=== PATIENT | female | born 1955 | race Caucasian/White ===

== ENCOUNTER → 2018-12-12 | Outpatient (CLI) | payer SELFPAY ==
--- NOTE | 2018-12-12 17:44 | RADRPT ---
PROCEDURE: XR Right hip and pelvis. CLINICAL INDICATION: Right hip pain and pelvic pain. TECHNIQUE: 3 views. Frontal pelvis. Frontal and lateral right hip. COMPARISON: None. FINDINGS: There are severe degenerative changes of both hips with joint space narrowing, osteophytes, subchondr al cysts, subchondral sclerosis, marked deformity, and protrusio acetabulum. Right is slightly worse than left. The soft tissues are normal. There is diffuse osteopenia. There is no radiopaque foreign body. IMPRESSION: 1. Severe degenerative changes of both hips with right slightly worse than left. 2. Diffuse osteopenia. 3. Otherwise unremarkable study. RPTAT: QQ .Tim Leon MD, MD Date Time Electronically viewed and signed by .Tim Leon MD, MD on 12/12/2018 17:44 .R/
== END | disposition home or self-care (01) ==
LOC: HKI 15:07
PROVIDERS: ATTEND Orthopaedic Surgery Adult Reconstructive Orthopaedic Surgery
DX: M25.551 Pain in right hip (principal); R10.2 Pelvic and perineal pain
CPT/HCPCS: 73502

== ENCOUNTER 2018-12-19 05:49 | Inpatient (IN) | payer OTHER ==
[2018-12-19] VITALS (23 sets, daily range): BP systolic 90–142; BP diastolic 45–75; PULSE 63–118; RESP 17–23; Ht 170.2 cm; Wt 73.5 kg
[~2018-12-19] VITALS: Ht 170.2 cm; Wt 73.5 kg
[~2018-12-19 05:49] MED LIST: TRANEXAMIC ACID 1GM/100ML(PMX) 100 ML PRE-OP IVPB ONE
[2018-12-19] MEDS ORDERED: TRANEXAMIC ACID 1GM/100ML(PMX) 100 ML PRE-OP IVPB ONE (06:00)
[2018-12-19] MEDS ORDERED: LACTATED RINGER'S 1,000 ML IV* SCH (06:00)
[2018-12-19] MEDS ORDERED: CELECOXIB 200 MG CAP PO ONE (06:00)
[2018-12-19] MEDS ORDERED: ACETAMINOPHEN 1000MG/100ML IV 100 ML IVPB ONE (06:00)
[2018-12-19] MEDS ORDERED: CEFAZOLIN 2 GM/50 ML (PMX) 50 ML IVPB ONE (06:00)
[2018-12-19] MEDS ORDERED: DEXAMETHASONE 4 MG/ML 1 ML INJ IV ONE (06:00)
[2018-12-19] MEDS ORDERED: ONDANSETRON 4 MG INJ IV ONE (06:00)
[2018-12-19] MEDS ORDERED: LANSOPRAZOLE 30 MG CAP PO ONE (06:00)
[2018-12-19] MEDS ORDERED: VANCOMYCIN 1 GM (PMX) 250 ML IVPB ONE (06:30)
[2018-12-19] MEDS ORDERED: ROCURONIUM 50 MG INJ ONE (07:00)
[2018-12-19] MEDS ORDERED: BACITRACIN 50000 UNITS INJ ONE ×2 (07:11)
[2018-12-19] MEDS ORDERED: POLYMYXIN B 500000 UNIT INJ ONE (07:13)
--- NOTE | 2018-12-19 07:21 | PREAC ---
Date/Time of Note Date/Time of Note DATE: 12/19/18 TIME: 07:20 Anesthesia Eval and Record Evaluation Time Pre-Procedure Interview DATE: 12/19/18 TIME: 07:20 Age 63 Sex female NPO: 8 hrs Preoperative diagnosis right primary RA Planned procedure right hip total replacement Past Medical History Past Medical History: None Surgery & Anesthesia Issues No known issue Meds Anticoagulation: No Beta Radha within 24 hr: No Reason Beta Radha not given: Pt. not on B-Radha No Active Prescriptions or Reported Meds Current Medications Lactated Ringer's 1,000 ml @ 125 mls/hr Q8H IV* Last administered on 12/19/18at 06:54; Admin Dose 125 MLS/HR; Start 12/19/18 at 06:00; Stop 12/19/18 at 13:59 Tranexamic Acid 100 ml @ 200 mls/hr AT CLOSING ONCE IVPB ; Start 12/19/18 at 12:00; Stop 12/19/18 at 12:29 Ropivacaine/ Clonidine/ Epinephrine/ Ketorolac Tromethamine/ Sodium Chloride INTRA-OP INJ ; Start 12/19/18 at 07:30; Stop 12/19/18 at 12:00 Vancomycin HCl 250 ml @ 125 mls/hr ONCE ONCE IVPB Last administered on 12/19/18at 06:44; Admin Dose 125 MLS/HR; Start 12/19/18 at 06:30; Stop 12/19/18 at 08:29 Meds reviewed: Yes Allergies Coded Allergies: No Known Allergy (Unverified , 12/19/18) Allergies Reviewed: Yes Labs/Studies Labs Reviewed: Reviewed by anesthesiologist Result Diagram: 12/19/1829 12/19/18 0629 Laboratory Tests 12/19/18 06:29 Blood Bank Test 12/19/18 06:22 Blood Product Summary Counts test: N/A Studies: ECG (sr), CXR (nl) Pre-procedure Exam Last vitals Vital Signs Date Temp Pulse Resp B/P (MAP) Pulse Ox O2 O2 Flow FiO2 Time Delivery Rate 12/19/18 97.5 75 18 142/75 96 Room Air 07:00 (97) Airway: Adequate mouth opening Mallampati: Mallampati I Teeth: Abnormal (partial denture) Lung: Normal Heart: Normal ASA Physical Status ASA physical status: 1 Emergency: None Planned Anesthetic General/MAC: ETT, LMA Neuraxial: Spinal Nerve block: Femoral (right) Planned Pain Management Sub-arachniod narcotics, Single shot nerve block, Parenteral pain med Pre-operative Attestations Prior to commencing anesthesia and surgery, the patient was re-evaluated, there was verification of: *The patient's identity *The results of appropriate recent lab work and preoperative vital signs *The above evaluation not changing prior to induction *Anesthetic plan, risk benefits, alternative and complications discussed with patient/family; questions answered; patient/family understands, accepts and wishes to proceed. KEILA LEMONS MD Dec 19, 2018 07:21
[2018-12-19] MEDS ORDERED: CEFAZOLIN 1 GM INJ ONE (07:27)
[2018-12-19] MEDS ORDERED: PROPOFOL 20 ML ONE (07:27)
--- NOTE | 2018-12-19 07:27 | HPN ---
Date/Time of Note Date/Time of Note DATE: 12/19/18 TIME: 07:27 Interval H&P Admission Note Pt. seen H&P reviewed: No system changes Patient denies fever, chills, shortness of breath, chest pain, nausea/vomiting, constipation, diarrhea, numbness, and tingling. MUSCULOSKELETAL: Right extremity Skin intact Sensation intact to light touch in a sural, saphenous, deep peroneal, superficial peroneal, medial and lateral plantar nerve distribution. Motor is intact, patient able to dorsiflex and plantarflex ankle and extend and flex great toe. Dorsalis Pedis pulse +2, Brisk capillary refill. Compartments are soft. Calves non-tender to palpation bilaterally. GABRIEL ESPINAL MD Dec 19, 2018 07:27
[2018-12-19] MEDS ORDERED: FENTAnyl 50 MCG/ML VIAL ONE (07:28)
[2018-12-19] MEDS ORDERED: METOCLOPRAMIDE 10 MG INJ ONE (07:28)
[2018-12-19] MEDS ORDERED: MIDAZOLAM 1 MG/ML 2 ML INJ ONE (07:28)
[2018-12-19] MEDS ORDERED: morphine SULFATE/PF (10 MG/10 ML) INJ ONE (07:28)
[2018-12-19] MEDS ORDERED: TRANEXAMIC ACID 1GM/100ML(PMX) 200 ML ONE (07:34)
[2018-12-19] MEDS ORDERED: DIPHENHYDRAMINE 50 MG INJ IV PRN ×2 (08:30→12:00)
[2018-12-19] MEDS ORDERED: FENTAnyl 50 MCG/ML VIAL IV PRN ×3 (08:30)
[2018-12-19] MEDS ORDERED: HYDROmorphONE 1 MG/5 ML IV SYRINGE IV PRN ×3 (08:30)
[2018-12-19] MEDS ORDERED: MEPERIDINE 25 MG INJ IV PRN (08:30)
[2018-12-19] MEDS ORDERED: ONDANSETRON 4 MG INJ IV PRN (08:30)
[2018-12-19] MEDS ORDERED: ROPIVACAINE 0.5 % 30 ML VIAL ONE (09:50)
[2018-12-19] MEDS ORDERED: EPHEDrine 50 MG INJ ONE (10:24)
[2018-12-19] MEDS ORDERED: ALBUMIN HUMAN 5% 250 ML ONE (10:24)
[2018-12-19] MEDS ORDERED: ONDANSETRON 4 MG INJ ONE (10:46)
--- NOTE | 2018-12-19 11:46 | OPR ---
Date/Time of Note Date/Time of Note DATE: 12/19/18 TIME: 11:45 Operative Report Procedure Date: Dec 19, 2018 Preoperative Diagnosis Protrusio right hip with secondary osteoarthritis Postoperative Diagnosis As above Operation/Procedure Performed Right total hip arthroplasty Intraoperative x-ray Bone grafting Surgeon see signature line Practicing Md Anesthesiologist Uvaldo Ruff Anesthesia Type: general, spinal Estimated Blood Loss: 150 - 200 ml's Transfusion none Specimen Femoral head Grafts/Implants Implant: DePuy: Gription-pinnacle acetabulum size 52 mm Polyethylene Size 36 mm neutral Femoral stem: [place] press-fit size 6, high offset Femoral head: 36 +1.5 mm ceramic. 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 POSTOP DIAGNOSIS: Same. SURGICAL PROCEDURE: Right total hip arthroplasty (CPT code 73686). With modifier 22 secondary to complicated an abnormal anatomy from her hip protrusio and bone loss which resulted in increase preoperative planning, requiring special equipment and increased time and effort by at least 50% Bone grafting Intraoperative x-ray INDICATIONS: The patient is a 63 year-old woman with an orthopaedic history significant for progressively worsening right hip pain. The patient failed conservative management and wished to pursue surgical options. On physical exam, they walk with a moderate antalgic gait. No previous open surgical scars. Very limited range of motion but no contractures. Neurovascularly intact. Radiographs reveal advanced protrusio with secondary. INFORMED CONSENT: The operative procedure was explained using diagrams and/or three-dimensional models. The rehabilitation, the potential risks, benefits and alternatives were discussed at length. Specific risks discussed included but were not limited to excessive blood loss and the need for transfusion and therefore the risk of transmissible disease or transfusion reaction, deep infection and the potential need for repetitive debridements, implant removal, long-term antibiotic therapy, possibly requiring deep venous access, leg-length discrepancy, dislocation, possibly recurrent, with the need for closed versus open reduction, bracing, femoral or acetabular fracture and the need for further surgery for fixation, neurovascular injury with temporary or permanent numbness, tingling, weakness or paralysis, deep venous thrombosis, pulmonary embolism and , persistent pain, weakness, or limp, late aseptic loosening and the need for revision, polyethylene wear-induced osteolysis and related problems, and finally, a wide variety of unanticipated medical problems. The opportunity to ask questions and address any concerns was provided. The patient wished to proceed. FINDINGS: Significant hip protrusio. The medial wall was intact but expanded medially. The bone was soft but of good quality superiorly. There was significant missing posterior wall. After the total hip arthroplasty was implanted and reduced it was noted that under at the new leg length the sciatic nerve was significantly close to the operative field although not under undue tension. SURGERY IN DETAIL: The patient was taken into the Operating Room and placed supine on the operating table. Preoperatively, they were administered Ancef and vancomycin secondary to MRSA status unknown. They were administered general and spinal anesthesia by the Anesthesia Department. Dexamethasone 10mg IV was administered. The patient was placed on an [facility] Lateral Positioner in a left lateral decubitus po sition with the right hip superior. An axillary roll was placed, all pressure points were confirmed padded. The right hip region was prepped and draped in sterile fashion. A surgical pause was performed, correctly identifying the patient's name, the correct medical record number, the correct diagnosis, correct surgical procedure, and the correct extremity. 1g of tranexamic acid was dosed at the time of incision A posterolateral skin incision, approximately 15-20 cm in length was made, centered over the greater trochanter, skin and subcutaneous tissue sharply dissected. Deep fascial layer was identified and incised in line with the skin incision. Gluteus medius was retracted anteriorly. Piriformis tendon was identified, tagged with a stitch, and incised close to its insertion. The interval between the gluteus minimus and hip capsule was developed superiorly, and a superior retractor was placed. Short external rotators were subperiosteally incised from the posterior proximal femur to the level of the lesser trochanter and an inferior retractor was placed. A posterior capsulotomy was performed. Two tag stitches were placed in the capsule. The hip was dislocated. A femoral neck osteotomy was performed at the preoperatively templated level. A radial incision was made in the inferior capsule to the level of transverse acetabular ligament, which was identified, and an inferior retractor was placed inferior to the transverse acetabular ligament or inferior to the cotyloid notch. An anterior retractor was placed at the rim of the acetabulum. The acetabular labrum was then s The acetabulum was then sequentially reamed, beginning at 45 mm, up to a size 51 outer diameter reamer with care not to ream medially. At a size 51 outer diameter reamer there is good rim fit. A size 52 mm Gription-Chandler cup was inserted. A 2 dome screws was placed with excellent purchase, and a neutral 36 mm polyethylene trial was inserted and attention was placed to preparing the femur. Soft tissues were removed from the junction of the greater trochanter and the femoral neck osteotomy. A box osteotome was used lateralize the starting point. A starting awl was utilized, followed by a lateralizing reamer, followed by axial reamers for the [place] system up to a size 6. The femoral canal was then broached up to a size 6. A neutral femoral head was inserted and the hip was reduced. Range of motion and stability were quite good, including forward flexion to greater than 90 degrees, internal rotation greater than 80 degrees at 90 degrees flexion, internal rotation greater than 80 degrees with the hip adducted and at 45 degrees of flexion. External Rotation was also tested, and was stable but there was significant impingement at full extension and 30 degrees external rotation. Therefore the trial was changed to a high offset neck which resolved the impingement external rotation and extension. Ranawat sign was 55 degrees. Intraoperative x-ray revealed the hip to have satisfactory position of all components. The hip was dislocated in controlled manner using a bone hook and the trial components removed. Local anesthetic was injected periarticular. A formal 36 mm neutral polyethylene was inserted into the cup, confirmed seated and locked. On the femoral side, a [place] size 6 high offset stem was inserted. A 36 +1.5 mm head was inserted onto the taper. The hip was reduced. One final time range of motion, stability, and soft tissue tension were satisfactory. The wound was thoroughly irrigated. 1g of tranexamic acid was dosed. The previously tagged a rthrotomy, as well as the piriformis tendon was reattached to the gluteus medius at the level the greater trochanter. The deep fascial layer was closed with 1 Vicryl in a [id number], interrupted fashion, deep subcutaneous tissues irrigated and closed with 0 Vicryl interrupted fashion, subcutaneous tissues irrigated, closed with 2-0 Vicryl in an inverted, interrupted fashion. The skin was closed with lizzy. A sterile dressing was applied, abduction pillow was placed between the legs, and the patient was transferred to a supine position. Postoperative clinical leg lengths, rotation of limb were neutral and symmetric. All Counts were correct x2 DISPOSITION: Patient transferred to PACU in stable condition. The patient will be weight bearing as tolerated on the operative extremity. PT will begin POD#0 if available. Posterior hip precautions for 3 months with an abduction pillow. Postoperative AP pelvis will be ordered in PACU. Bilateral knee high SCDs will be worn while admitted. ASA 81mg BID will be given for DVT prophylaxis for 6 weeks. Pain will be controlled with medication. The patient will follow up in clinic in approximately 2 weeks. Implant: DePuy: Gription-pinnacle acetabulum size 52 mm Polyethylene Size 36 mm neutral Femoral stem: [place] press-fit size 6, high offset Femoral head: 36 +1.5 mm ceramic. Bone graft: 2 cc montage approximately 5-10 cc of autologous bone graft from the femoral head GABRIEL ESPINAL MD Dec 19, 2018 11:46
[2018-12-19] MEDS ORDERED: SUCCINYLCHOLINE CHLORIDE 100 MG/5 ML SYG IV ONE (11:47)
[2018-12-19] MEDS ORDERED: NALOXONE (0.4 MG/ML) INJ IV PRN (12:00)
[2018-12-19] MEDS ORDERED: BETHANECHOL 25 MG TAB PO PRN (12:00)
[2018-12-19] MEDS ORDERED: TRANEXAMIC ACID 1GM/100ML(PMX) 100 ML AT CLOSING IVPB ONE (12:00)
[2018-12-19] MEDS ORDERED: HYDROmorphONE 1 MG/ML SYG IV PRN (12:00)
[2018-12-19] MEDS ORDERED: MAGNESIUM HYDROXIDE 30ML CUP PO PRN (12:00)
[2018-12-19] MEDS ORDERED: NA PHOSPHATE/BIPHOS 133 ML ENEMA PR PRN (12:00)
[2018-12-19] MEDS ORDERED: oxyCODONE 5 MG TAB PO PRN (12:00)
[2018-12-19] MEDS ORDERED: NACL 0.9% 3 ML SYG IV SCH (12:00)
[2018-12-19] MEDS ORDERED: DOCUSATE SODIUM 100 MG CAP PO ONE ×2 (12:00→12:48)
[2018-12-19] MEDS ORDERED: BISACODYL 10 MG SUPP PR PRN (12:00)
[2018-12-19] MEDS ORDERED: SENNA/DOCUSATE NA (8.6MG/50MG) TAB PO PRN (12:00)
[2018-12-19] MEDS: CEFAZOLIN 2 GM/50 ML (PMX) 50 ML IVPB SCH ×2 (12:31→20:11)
[2018-12-19] MEDS: LACTATED RINGER'S 1,000 ML IV SCH ×2 (13:40→20:14)
[2018-12-19] MEDS: ACETAMINOPHEN 500 MG TAB PO SCH ×2 (14:52→21:57)
--- NOTE | 2018-12-19 16:57 | CONS ---
Assessment/Plan Assessment/Plan Assessment/Plan (Daily) 1. Right hip arthritis status post right total hip arthroplasty postop day #0 Pain control PT DVT prophylaxis per Ortho Consultation Date/Type/Reason Admit Date/Time Dec 19, 2018 at 05:49 Date/Time of Note DATE: 12/19/18 TIME: 16:56 Hx of Present Illness Patient is a 63-year-old female with no significant history except for right hip arthritis, patient is status post right total hip arthroplasty postop day 0. Patient has no significant complaints at this time. Constitutional: no complaints, improved Eyes: no complaints ENT: no complaints Respiratory: no complaints Cardiovascular: no complaints Gastrointestinal: no complaints Genitourinary: no complaints Musculoskeletal: no complaints Skin: no complaints Neurologic: no complaints Endocrine: no complaints Lymphatic: no complaints Psychological: no complaints, nl mood/affect Immunologic: no complaints Past Medical History Medical History: no pertinent history Home Meds No Active Prescriptions or Reported Meds Medications Current Medications Lactated Ringer's 1,000 ml @ 80 mls/hr [id number] IV ; Start 12/19/18 at 13:30 Oxycodone HCl (Roxicodone) 15 mg Q4H PRN PO .PAIN; Start 12/19/18 at 12:00 Oxycodone HCl (Roxicodone) 10 mg Q4H PRN PO .PAIN; Start 12/19/18 at 12:00 Oxycodone HCl (Roxicodone) 5 mg Q4H PRN PO .PAIN; Start 12/19/18 at 12:00 Hydromorphone HCl (Dilaudid) 1 mg Q3H PRN IV .BREAKTHROUGH PAIN; Start 12/19/18 at 12:00 Acetaminophen (Tylenol Tab) 1,000 mg Q8 PO Last administered on 12/19/18at 14:52; Admin Dose 1,000 MG; Start 12/19/18 at 14:00 Ondansetron HCl (Zofran Inj) 4 mg Q4H PRN IV NAUSEA/VOMITING; Start 12/20/18 at 12:00 Cefazolin Sodium/ Dextrose 50 ml @ 100 mls/hr Q8H IVPB Last administered on 12/19/18at 12:31; Admin Dose 100 MLS/HR; Start 12/19/18 at 12:00; Stop 12/20/18 at 04:29 Vancomycin HCl 250 ml @ 125 mls/hr Q12H IVPB ; Start 12/19/18 at 18:00; Stop 12/20/18 at 07:59 Gabapentin (Neurontin) 300 mg QHS PO ; Start 12/19/18 at 21:00 Dexamethasone (Decadron) 10 mg ONCE ONCE IV ; Start 12/20/18 at 07:00; Stop 12/20/18 at 07:01 Pantoprazole (Protonix Tab) 40 mg DAILY@06 PO ; Start 12/20/18 at 06:00 Docusate Sodium (Colace) 200 mg BID PO ; Start 12/20/18 at 09:00; Stop 12/22/18 at 21:01 Simethicone (Mylicon) 80 mg TID PRN PO .GAS; Start 12/19/18 at 12:00 Senna/Docusate Sodium (Senokot-S) 2 tab BID PRN PO .CONSTIPATION; Start 12/19/18 at 12:00 Magnesium Hydroxide (Milk Of Mag) 30 ml HS PRN PO .CONSTIPATION; Start 12/19/18 at 12:00 Bisacodyl (Dulcolax Supp) 10 mg DAILY PRN [place] .CONSTIPATION; Start 12/19/18 at 12:00 Sodium Biphosphate/ Sodium Phosphate (Fleet Enema) 133 ml DAILY PRN [place] .CONSTIPATION; Start 12/19/18 at 12:00 Diphenhydramine HCl (Benadryl) 25 mg Q4H PRN IV .ITCHING; Start 12/19/18 at 12:00 Naloxone HCl (Narcan) 0.2 mg Q2M PRN IV .RESP RATE; Start 12/19/18 at 12:00 IV Flush (NS 3 ml) 3 ml per protocol IV ; Start 12/19/18 at 12:00 Bethanechol Chloride (Urecholine) 25 mg URINARY CATH D/C PRN PO UNABLE TO VOID; Start 12/19/18 at 12:00 Aspirin (Halfprin) 81 mg BID PO ; Start 12/20/18 at 09:00 Allergies: Coded Allergies: No Known Allergy (Unverified , 12/19/18) Family History Significant Family History: no pertinent family hx Social History Alcohol Use: rarely Smoking Status: Never smoker Drug Use: none Exam/Review of Systems Exam Vitals Vital Signs Date Temp Pulse Resp B/P (MAP) Pulse Ox O2 O2 Flow FiO2 Time Delivery Rate 12/19/18 98.1 94 91/52 (65) 98 Room Air 15:45 Nasal Cannula 12/19/18 2.0 13:45 12/19/18 18 12:37 Constitutional: alert, oriented Respiratory: clear to auscultation Cardiovascular: regular rate and rhythm Gastrointestinal: soft; No distended Musculoskeletal: nl extremities to inspection Results Result Diagram: 12/19/18 0629 12/19/18 0629 Results 24hrs Laboratory Tests Test 12/19/18 06:29 White Blood Count 7.2 Red Blood Count 4.31 Hemoglobin 12.6 Hematocrit 38.5 Mean Corpuscular Volume 89.3 Mean Corpuscular Hemoglobin 29.2 Mean Corpuscular Hemoglobin Concent 32.7 Red Cell Distribution Width 13.7 Platelet Count 302 Mean Platelet Volume 8.4 Immature Granulocytes % 0.100 Neutrophils % 45.4 Lymphocytes % 43.1 Monocytes % 8.5 Eosinophils % 2.2 Basophils % 0.7 Nucleated Red Blood Cells % 0.0 Immature Granulocytes # 0.010 Neutrophils # 3.2 Lymphocytes # 3.1 H Monocytes # 0.6 Eosinophils # 0.2 Basophils # 0.1 Nucleated Red Blood Cells # 0.0 Prothrombin Time 12.0 Prothrombin Time Ratio 0.9 INR International Normalized Ratio 0.88 Activated Partial Thromboplast Time 31.2 Sodium Level 142 Potassium Level 4.4 Chloride Level 101 Carbon Dioxide Level 30 Anion Gap 11 Blood Urea Nitrogen 21 H Creatinine 0.62 Est Glomerular Filtrat Rate mL/min > 60 Glucose Level 82 Calcium Level 10.1 Medications Medication Current Medications Lactated Ringer's 1,000 ml @ 80 mls/hr [id number] IV ; Start 12/19/18 at 13:30 Oxycodone HCl (Roxicodone) 15 mg Q4H PRN PO .PAIN; Start 12/19/18 at 12:00 Oxycodone HCl (Roxicodone) 10 mg Q4H PRN PO .PAIN; Start 12/19/18 at 12:00 Oxycodone HCl (Roxicodone) 5 mg Q4H PRN PO .PAIN; Start 12/19/18 at 12:00 Hydromorphone HCl (Dilaudid) 1 mg Q3H PRN IV .BREAKTHROUGH PAIN; Start 12/19/18 at 12:00 Acetaminophen (Tylenol Tab) 1,000 mg Q8 PO Last administered on 12/19/18at 14:52; Admin Dose 1,000 MG; Start 12/19/18 at 14:00 Ondansetron HCl (Zofran Inj) 4 mg Q4H PRN IV NAUSEA/VOMITING; Start 12/20/18 at 12:00 Cefazolin Sodium/ Dextrose 50 ml @ 100 mls/hr Q8H IVPB Last administered on 12/19/18at 12:31; Admin Dose 100 MLS/HR; Start 12/19/18 at 12:00; Stop 12/20/18 at 04:29 Vancomycin HCl 250 ml @ 125 mls/hr Q12H IVPB ; Start 12/19/18 at 18:00; Stop 12/20/18 at 07:59 Gabapentin (Neurontin) 300 mg QHS PO ; Start 12/19/18 at 21:00 Dexamethasone (Decadron) 10 mg ONCE ONCE IV ; Start 12/20/18 at 07:00; Stop 12/20/18 at 07:01 Pantoprazole (Protonix Tab) 40 mg DAILY@06 PO ; Start 12/20/18 at 06:00 Docusate Sodium (Colace) 200 mg BID PO ; Start 12/20/18 at 09:00; Stop 12/22/18 at 21:01 Simethicone (Mylicon) 80 mg TID PRN PO .GAS; Start 12/19/18 at 12:00 Senna/Docusate Sodium (Senokot-S) 2 tab BID PRN PO .CONSTIPATION; Start 12/19/18 at 12:00 Magnesium Hydroxide (Milk Of Mag) 30 ml HS PRN PO .CONSTIPATION; Start 12/19/18 at 12:00 Bisacodyl (Dulcolax Supp) 10 mg DAILY PRN [place] .CONSTIPATION; Start 12/19/18 at 12:00 Sodium Biphosphate/ Sodium Phosphate (Fleet Enema) 133 ml DAILY PRN [place] .CONSTIPATION; Start 12/19/18 at 12:00 Diphenhydramine HCl (Benadryl) 25 mg Q4H PRN IV .ITCHING; Start 12/19/18 at 12:00 Naloxone HCl (Narcan) 0.2 mg Q2M PRN IV .RESP RATE; Start 12/19/18 at 12:00 IV Flush (NS 3 ml) 3 ml per protocol IV ; Start 12/19/18 at 12:00 Bethanechol Chloride (Urecholine) 25 mg URINARY CATH D/C PRN PO UNABLE TO VOID; Start 12/19/18 at 12:00 Aspirin (Halfprin) 81 mg BID PO ; Start 12/20/18 at 09:00 NITZA LEVI Dec 19, 2018 16:57
[2018-12-19] MEDS: VANCOMYCIN 1 GM (PMX) 250 ML IVPB SCH (17:43)
--- NOTE | 2018-12-19 17:58 | RADRPT ---
Vent Rate: 72 bpm RR Interval: 0 msec KS Interval: 130 msec QRS Duration: 88 msec QT Interval: 398 msec QTC Interval: 435 msec P-R-T [place]: 56 - 57 - 68 degrees Normal sinus rhythm Normal ECG Electronically Signed By: Darian Goldsmith
[2018-12-19] MEDS: GABAPENTIN 300 MG CAP PO SCH (20:11)
[2018-12-20] VITALS (23 sets, daily range): BP systolic 73–104; BP diastolic 36–54; PULSE 81–106; RESP 14–19
[2018-12-20] MEDS: LACTATED RINGER'S 1,000 ML IV SCH ×2 (03:43→22:22)
[2018-12-20] MEDS: CEFAZOLIN 2 GM/50 ML (PMX) 50 ML IVPB SCH (03:43)
[2018-12-20] MEDS: oxyCODONE 5 MG TAB PO PRN ×4 (03:52→20:42)
[2018-12-20] MEDS: VANCOMYCIN 1 GM (PMX) 250 ML IVPB SCH (05:07)
[2018-12-20] MEDS: PANTOPRAZOLE (EC) 40 MG TAB PO SCH (05:09)
[2018-12-20] MEDS: ACETAMINOPHEN 500 MG TAB PO SCH ×3 (05:09→22:25)
[2018-12-20] MEDS ORDERED: DEXAMETHASONE 10 MG/ML 1 ML INJ IV ONE (07:00)
--- NOTE | 2018-12-20 08:00 | PN ---
Date/Time of Note Date/Time of Note DATE: 12/20/18 TIME: 07:56 Assessment/Plan Lines/Catheters IV Catheter Type (from Nrsg): Saline Lock Ramirez in Place (from Nrsg): Yes Assessment/Plan Chief Complaint/Hosp Course POD#1 s/p primary right LINA. There has been a significant drop in hemoglobin since surgery. This is acute anemia secondary to surgical blood loss. There was not significant amount of intraoperative bleeding. The acute drop in hemoglobin is concerning, however her vitals have remained stable since PACU. At this time we will going to closely monitor the patient take vitals every 2 hours and get a repeat H&H at noon. Patient has 2 units of PRBCs on hold from surgery. -Post op H&H will continue to be monitored closely. -PT/OT. Posterior Hip Precautions -Joints pain control protocol -DVT prophylaxis: SCD's, ASA 81 mg twice daily -Weight bearing status: as tolerated -Post-op XR ordered -Abx: 24h vanc/ancef -Diet: ADAT -Ramirez: Continue Ramirez for continued strict I and O's secondary to acute anemia and need for further monitoring -Discharge planning consult Planned Discharge Date: To be determined Discharge to home with home health versus SNF Subjective 24 Hr Interval Summary Patient doing well No acute events overnight Pain is well controlled Exam/Review of Systems Vital Signs Vitals Vital Signs Date Temp Pulse Resp B/P (MAP) Pulse Ox O2 O2 Flow FiO2 Time Delivery Rate 12/20/18 98.6 90 19 92/53 (66) 98 Room Air 04:37 Nasal Cannula 12/19/18 2.0 20:10 Intake and Output 12/19/18 12/19/18 12/20/18 1515:00 23:00 07:00 IntakeIntake Total 2950 ml 770 ml 845 ml OutputOutput Total 2250 ml BalanceBalance 700 ml 770 ml 845 ml Exam Free Text/Dictation Right lower extremity: Dressing: clean, dry, and intact, no erythema. Thigh is swollen Sensation intact to light touch in a sural, saphenous, deep peroneal, superficial peroneal, medial and lateral plantar nerve distribution. Motor is intact, patient able to dorsiflex and plantarflex ankle and extend and flex great toe. Dorsalis Pedis pulse +2, Brisk capillary refill. Compartments are soft. Calves non-tender to palpation bilaterally. Results Result Diagram: 12/20/18 0625 12/20/18 0434 GABRIEL ESPINAL MD Dec 20, 2018 08:00
[2018-12-20] MEDS: ASPIRIN (EC) 81 MG TAB PO SCH ×2 (08:32→21:00)
[2018-12-20] MEDS: DOCUSATE SODIUM 100 MG CAP PO SCH ×2 (08:32→20:42)
--- NOTE | 2018-12-20 09:12 | PAC ---
Date/Time of Note Date/Time of Note DATE: 12/20/18 TIME: 09:12 Post-Anesthesia Notes Post-Anesthesia Note Last documented vital signs Vital Signs Date Temp Pulse Resp B/P (MAP) Pulse Ox O2 O2 Flow FiO2 Time Delivery Rate 12/20/18 98.2 89 18 91/52 (65) 97 08:00 12/20/18 Room Air 04:37 Nasal Cannula 12/19/18 2.0 20:10 Activity: WNL Respiratory function: WNL Cardiovascular function: WNL Mental status: Baseline Pain reasonably controlled: Yes Hydration appropriate: Yes Nausea/Vomiting absent: No KEILA LEMONS MD Dec 20, 2018 09:12
--- NOTE | 2018-12-20 09:12 | OPPN ---
Date/Time of Note Date/Time of Note DATE: 12/20/18 TIME: 09:12 Anesthesia Follow up Anesthesia Follow up Last documented vital signs Vital Signs Date Temp Pulse Resp B/P (MAP) Pulse Ox O2 O2 Flow FiO2 Time Delivery Rate 12/20/18 98.2 89 18 91/52 (65) 97 08:00 12/20/18 Room Air 04:37 Nasal Cannula 12/19/18 2.0 20:10 Respiratory function: WNL Cardiovascular function: WNL Comments A 63 yeasr female s/p right hip replacement under [place] spinal duramorph for posst op pain POD#1 is doing fine . pain is controlled, no itching, headache, N/V, neural deficit. KEILA LEMONS MD Dec 20, 2018 09:12
[2018-12-20] MEDS ORDERED: CARISOPRODOL 350 MG TAB PO ONE (11:30)
[2018-12-20] MEDS ORDERED: ONDANSETRON 4 MG INJ IV PRN (12:00)
--- NOTE | 2018-12-20 15:20 | PN ---
Date/Time of Note Date/Time of Note DATE: 12/20/18 TIME: 15:18 Assessment/Plan VTE Prophylaxis Risk score (from Ns)>0 risk: 10 SCD applied (from Ns): Yes Pharmacological prophylaxis: other Lines/Catheters IV Catheter Type (from Nrsg): Saline Lock Assessment/Plan Hospital Course 1. Right hip arthritis status post right total hip arthroplasty postop day #1 Pain control PT Aspirin for DVT prophylaxis 2. Anemia secondary to acute blood loss Transfuse 2 units of packed red blood cells 3. Muscular neck pain Soma x1 Prophylaxis: Aspirin Result Diagram: 12/20/18 1235 12/20/18 0434 Results 24hrs Laboratory Tests Test 12/20/18 04:34 12/20/18 06:25 12/20/18 12:35 White Blood Count 6.0 5.9 Red Blood Count 2.16 #L 2.12 L Hemoglobin 6.5 #*L 6.3 *L 6.7 *L Hematocrit 19.6 #L 19.4 L 20.7 L Mean Corpuscular Volume 90.7 91.5 Mean Corpuscular Hemoglobin 30.1 29.7 Mean Corpuscular Hemoglobin Concent 33.2 32.5 Red Cell Distribution Width 14.1 14.1 Platelet Count 170 # 179 Mean Platelet Volume 8.9 8.9 Immature Granulocytes % 0.200 0.300 Neutrophils % 68.3 Segmented Neutrophils % (Manual) 53 Band Neutrophils % (Manual) 17 H Lymphocytes % 24.1 Lymphocytes % (Manual) 28 Monocytes % 6.9 Monocytes % (Manual) 2 Eosinophils % 0.2 Basophils % 0.2 Nucleated Red Blood Cells % 0.0 0.0 Immature Granulocytes # 0.010 0.020 Neutrophils # 4.1 Neutrophils # (Manual) 3.2 Band Neutrophils # 1.0 H Lymphocytes (Manual) 1.6 Lymphocytes # 1.4 Monocytes # 0.4 Monocytes # (Manual) 0.1 L Eosinophils # 0.0 Basophils # 0.0 Nucleated Red Blood Cells # 0.0 Platelet Estimate NORMAL Anisocytosis 1+ Microcytosis 1+ Prothrombin Time 14.4 Prothrombin Time Ratio 1.1 INR International Normalized Ratio 1.11 Sodium Level 138 Potassium Level 4.1 Chloride Level 106 Carbon Dioxide Level 27 Anion Gap 5 Blood Urea Nitrogen 21 H Creatinine 0.75 Est Glomerular Filtrat Rate mL/min > 60 Glucose Level 110 Calcium Level 8.4 Subjective 24 Hr Interval Summary Musculoskeletal: neck pain Exam/Review of Systems Exam Vitals Vital Signs Date Temp Pulse Resp B/P (MAP) Pulse Ox O2 O2 Flow FiO2 Time Delivery Rate 12/20/18 98.3 88 17 95 14:15 12/20/18 Room Air 12:00 12/19/18 2.0 20:10 Intake and Output 12/19/18 12/19/18 12/20/18 1515:00 23:00 07:00 IntakeIntake Total 2950 ml 770 ml 845 ml OutputOutput Total 2250 ml BalanceBalance 700 ml 770 ml 845 ml Constitutional: alert, oriented Respiratory: clear to auscultation Cardiovascular: regular rate and rhythm Gastrointestinal: soft; No distended Musculoskeletal: nl extremities to inspection Results Results 24hrs Laboratory Tests Test 12/20/18 04:34 12/20/18 06:25 12/20/18 12:35 White Blood Count 6.0 5.9 Red Blood Count 2.16 #L 2.12 L Hemoglobin 6.5 #*L 6.3 *L 6.7 *L Hematocrit 19.6 #L 19.4 L 20.7 L Mean Corpuscular Volume 90.7 91.5 Mean Corpuscular Hemoglobin 30.1 29.7 Mean Corpuscular Hemoglobin Concent 33.2 32.5 Red Cell Distribution Width 14.1 14.1 Platelet Count 170 # 179 Mean Platelet Volume 8.9 8.9 Immature Granulocytes % 0.200 0.300 Neutrophils % 68.3 Segmented Neutrophils % (Manual) 53 Band Neutrophils % (Manual) 17 H Lymphocytes % 24.1 Lymphocytes % (Manual) 28 Monocytes % 6.9 Monocytes % (Manual) 2 Eosinophils % 0.2 Basophils % 0.2 Nucleated Red Blood Cells % 0.0 0.0 Immature Granulocytes # 0.010 0.020 Neutrophils # 4.1 Neutrophils # (Manual) 3.2 Band Neutrophils # 1.0 H Lymphocytes (Manual) 1.6 Lymphocytes # 1.4 Monocytes # 0.4 Monocytes # (Manual) 0.1 L Eosinophils # 0.0 Basophils # 0.0 Nucleated Red Blood Cells # 0.0 Platelet Estimate NORMAL Anisocytosis 1+ Microcytosis 1+ Prothrombin Time 14.4 Prothrombin Time Ratio 1.1 INR International Normalized Ratio 1.11 Sodium Level 138 Potassium Level 4.1 Chloride Level 106 Carbon Dioxide Level 27 Anion Gap 5 Blood Urea Nitrogen 21 H Creatinine 0.75 Est Glomerular Filtrat Rate mL/min > 60 Glucose Level 110 Calcium Level 8.4 Medications Medication Current Medications Lactated Ringer's 1,000 ml @ 80 mls/hr [id number] IV Last administered on 12/20/18at 03:43; Admin Dose 80 MLS/HR; Start 12/19/18 at 13:30 Oxycodone HCl (Roxicodone) 15 mg Q4H PRN PO .PAIN; Start 12/19/18 at 12:00 Oxycodone HCl (Roxicodone) 10 mg Q4H PRN PO .PAIN; Start 12/19/18 at 12:00 Oxycodone HCl (Roxicodone) 5 mg Q4H PRN PO .PAIN Last administered on 12/20/18at 10:50; Admin Dose 5 MG; Start 12/19/18 at 12:00 Hydromorphone HCl (Dilaudid) 1 mg Q3H PRN IV .BREAKTHROUGH PAIN; Start 12/19/18 at 12:00 Acetaminophen (Tylenol Tab) 1,000 mg Q8 PO Last administered on 12/20/18at 14:33; Admin Dose 1,000 MG; Start 12/19/18 at 14:00 Ondansetron HCl (Zofran Inj) 4 mg Q4H PRN IV NAUSEA/VOMITING; Start 12/20/18 at 12:00 Gabapentin (Neurontin) 300 mg QHS PO Last administered on 12/19/18at 20:11; Admin Dose 300 MG; Start 12/19/18 at 21:00 Pantoprazole (Protonix Tab) 40 mg DAILY@06 PO Last administered on 12/20/18at 05:09; Admin Dose 40 MG; Start 12/20/18 at 06:00 Docusate Sodium (Colace) 200 mg BID PO Last administered on 12/20/18at 08:32; Admin Dose 200 MG; Start 12/20/18 at 09:00; Stop 12/22/18 at 21:01 Simethicone (Mylicon) 80 mg TID PRN PO .GAS; Start 12/19/18 at 12:00 Senna/Docusate Sodium (Senokot-S) 2 tab BID PRN PO .CONSTIPATION; Start 12/19/18 at 12:00 Magnesium Hydroxide (Milk Of Mag) 30 ml HS PRN PO .CONSTIPATION; Start 12/19/18 at 12:00 Bisacodyl (Dulcolax Supp) 10 mg DAILY PRN [place] .CONSTIPATION; Start 12/19/18 at 12:00 Sodium Biphosphate/ Sodium Phosphate (Fleet Enema) 133 ml DAILY PRN [place] .CONSTIPATION; Start 12/19/18 at 12:00 Diphenhydramine HCl (Benadryl) 25 mg Q4H PRN IV .ITCHING; Start 12/19/18 at 12:00 Naloxone HCl (Narcan) 0.2 mg Q2M PRN IV .RESP RATE; Start 12/19/18 at 12:00 IV Flush (NS 3 ml) 3 ml per protocol IV ; Start 12/19/18 at 12:00 Bethanechol Chloride (Urecholine) 25 mg URINARY CATH D/C PRN PO UNABLE TO VOID; Start 12/19/18 at 12:00 Aspirin (Halfprin) 81 mg BID PO Last administered on 12/20/18at 08:32; Admin Dose 81 MG; Start 12/20/18 at 09:00 NITZA LEVI Dec 20, 2018 15:20
[2018-12-20] MEDS: GABAPENTIN 300 MG CAP PO SCH (20:43)
[2018-12-21] VITALS (10 sets, daily range): BP systolic 88–119; BP diastolic 46–64; PULSE 76–98; RESP 17–18
[2018-12-21] MEDS: oxyCODONE 5 MG TAB PO PRN ×2 (02:13→21:14)
[2018-12-21] MEDS: ACETAMINOPHEN 500 MG TAB PO SCH ×3 (06:07→21:11)
[2018-12-21] MEDS: PANTOPRAZOLE (EC) 40 MG TAB PO SCH (06:07)
[2018-12-21] MEDS: DOCUSATE SODIUM 100 MG CAP PO SCH ×2 (08:24→21:11)
[2018-12-21] MEDS: LACTATED RINGER'S 1,000 ML IV SCH (15:30)
--- NOTE | 2018-12-21 15:56 | PN ---
Date/Time of Note Date/Time of Note DATE: 12/21/18 TIME: 15:54 Assessment/Plan VTE Prophylaxis Risk score (from Ns)>0 risk: 5 SCD applied (from [facility] [place]): Yes Pharmacological prophylaxis: NA/contraindicated Pharm contraindication: bleeding Lines/Catheters IV Catheter Type (from [facility]): Peripheral IV Assessment/Plan Hospital Course 1. Right hip arthritis status post right total hip arthroplasty postop day #2 Pain control PT Aspirin for DVT prophylaxis being held secondary to anemia 2. Anemia secondary to acute blood loss Transfuse 2 units of packed red blood cells Monitor 3. Muscular neck pain-resolved Status post Soma x1 4. Constipation Colace and senna Prophylaxis: SCDs, aspirin being held secondary to anemia Result Diagram: 12/21/18 0439 12/21/18 0439 Results 24hrs Laboratory Tests Test 12/20/18 20:13 12/21/18 04:39 Hemoglobin 6.2 *L 5.9 *L Hematocrit 19.3 L 17.9 L White Blood Count 6.3 Red Blood Count 1.93 L Mean Corpuscular Volume 92.7 Mean Corpuscular Hemoglobin 30.6 Mean Corpuscular Hemoglobin Concent 33.0 Red Cell Distribution Width 14.4 Platelet Count 161 Mean Platelet Volume 9.2 Immature Granulocytes % 0.500 H Neutrophils % 63.6 Lymphocytes % 28.0 Monocytes % 7.2 Eosinophils % 0.5 Basophils % 0.2 Nucleated Red Blood Cells % 0.0 Immature Granulocytes # 0.030 Neutrophils # 4.0 Lymphocytes # 1.8 Monocytes # 0.5 Eosinophils # 0.0 Basophils # 0.0 Nucleated Red Blood Cells # 0.0 Prothrombin Time 13.5 Prothrombin Time Ratio 1.1 INR International Normalized Ratio 1.02 Sodium Level 140 Potassium Level 3.9 Chloride Level 106 Carbon Dioxide Level 29 Anion Gap 5 Blood Urea Nitrogen 17 Creatinine 0.67 Est Glomerular Filtrat Rate mL/min > 60 Glucose Level 103 Calcium Level 8.2 L Subjective 24 Hr Interval Summary Gastrointestinal: constipation Exam/Review of Systems Exam Vitals Vital Signs Date Temp Pulse Resp B/P (MAP) Pulse Ox O2 O2 Flow FiO2 Time Delivery Rate 12/21/18 98.0 98 18 106/53 90 Room Air 14:19 (70) 12/19/18 2.0 20:10 Intake and Output 12/20/18 12/20/18 12/21/18 1414:59 22:59 06:59 IntakeIntake Total 1325 ml 1280 ml 1100 ml OutputOutput Total 1600 ml 2600 ml BalanceBalance -275 ml 1280 ml -1500 ml Constitutional: alert, oriented Respiratory: clear to auscultation Cardiovascular: regular rate and rhythm Gastrointestinal: soft; No distended Musculoskeletal: nl extremities to inspection Results Results 24hrs Laboratory Tests Test 12/20/18 20:13 12/21/18 04:39 Hemoglobin 6.2 *L 5.9 *L Hematocrit 19.3 L 17.9 L White Blood Count 6.3 Red Blood Count 1.93 L Mean Corpuscular Volume 92.7 Mean Corpuscular Hemoglobin 30.6 Mean Corpuscular Hemoglobin Concent 33.0 Red Cell Distribution Width 14.4 Platelet Count 161 Mean Platelet Volume 9.2 Immature Granulocytes % 0.500 H Neutrophils % 63.6 Lymphocytes % 28.0 Monocytes % 7.2 Eosinophils % 0.5 Basophils % 0.2 Nucleated Red Blood Cells % 0.0 Immature Granulocytes # 0.030 Neutrophils # 4.0 Lymphocytes # 1.8 Monocytes # 0.5 Eosinophils # 0.0 Basophils # 0.0 Nucleated Red Blood Cells # 0.0 Prothrombin Time 13.5 Prothrombin Time Ratio 1.1 INR International Normalized Ratio 1.02 Sodium Level 140 Potassium Level 3.9 Chloride Level 106 Carbon Dioxide Level 29 Anion Gap 5 Blood Urea Nitrogen 17 Creatinine 0.67 Est Glomerular Filtrat Rate mL/min > 60 Glucose Level 103 Calcium Level 8.2 L Medications Medication Current Medications Lactated Ringer's 1,000 ml @ 80 mls/hr [id number] IV Last administered on 12/20/18at 22:22; Admin Dose 80 MLS/HR; Start 12/19/18 at 13:30 Oxycodone HCl (Roxicodone) 15 mg Q4H PRN PO .PAIN; Start 12/19/18 at 12:00 Oxycodone HCl (Roxicodone) 10 mg Q4H PRN PO .PAIN Last administered on 12/21/18at 02:13; Admin Dose 10 MG; Start 12/19/18 at 12:00 Oxycodone HCl (Roxicodone) 5 mg Q4H PRN PO .PAIN Last administered on 12/20/18at 10:50; Admin Dose 5 MG; Start 12/19/18 at 12:00 Hydromorphone HCl (Dilaudid) 1 mg Q3H PRN IV .BREAKTHROUGH PAIN; Start 12/19/18 at 12:00 Acetaminophen (Tylenol Tab) 1,000 mg Q8 PO Last administered on 12/21/18at 13:24; Admin Dose 1,000 MG; Start 12/19/18 at 14:00 Ondansetron HCl (Zofran Inj) 4 mg Q4H PRN IV NAUSEA/VOMITING; Start 12/20/18 at 12:00 Gabapentin (Neurontin) 300 mg QHS PO Last administered on 12/20/18at 20:43; Admin Dose 300 MG; Start 12/19/18 at 21:00 Pantoprazole (Protonix Tab) 40 mg DAILY@06 PO Last administered on 12/21/18at 06:07; Admin Dose 40 MG; Start 12/20/18 at 06:00 Docusate Sodium (Colace) 200 mg BID PO Last administered on 12/21/18at 08:24; Admin Dose 200 MG; Start 12/20/18 at 09:00; Stop 12/22/18 at 21:01 Simethicone (Mylicon) 80 mg TID PRN PO .GAS; Start 12/19/18 at 12:00 Senna/Docusate Sodium (Senokot-S) 2 tab BID PRN PO .CONSTIPATION; Start 12/19/18 at 12:00 Magnesium Hydroxide (Milk Of Mag) 30 ml HS PRN PO .CONSTIPATION; Start 12/19/18 at 12:00 Bisacodyl (Dulcolax Supp) 10 mg DAILY PRN [place] .CONSTIPATION; Start 12/19/18 at 12:00 Sodium Biphosphate/ Sodium Phosphate (Fleet Enema) 133 ml DAILY PRN [place] .CONSTIPATION; Start 12/19/18 at 12:00 Diphenhydramine HCl (Benadryl) 25 mg Q4H PRN IV .ITCHING; Start 12/19/18 at 12:00 Naloxone HCl (Narcan) 0.2 mg Q2M PRN IV .RESP RATE; Start 12/19/18 at 12:00 IV Flush (NS 3 ml) 3 ml per protocol IV ; Start 12/19/18 at 12:00 Bethanechol Chloride (Urecholine) 25 mg URINARY CATH D/C PRN PO UNABLE TO VOID; Start 12/19/18 at 12:00 Aspirin (Halfprin) 81 mg BID PO Last administered on 12/20/18at 08:32; Admin Dose 81 MG; Start 12/20/18 at 09:00; Status Hold NITZA LEVI Dec 21, 2018 15:56
[2018-12-21] MEDS ORDERED: SENNA TAB PO SCH (16:00)
[2018-12-21] MEDS: GABAPENTIN 300 MG CAP PO SCH (21:11)
[2018-12-22 01:12] VITALS: BP 109/62; PULSE 96; RESP 18
[2018-12-22] MEDS: LACTATED RINGER'S 1,000 ML IV SCH (04:00)
[2018-12-22] MEDS: oxyCODONE 5 MG TAB PO PRN ×2 (05:10→12:33)
[2018-12-22] MEDS: PANTOPRAZOLE (EC) 40 MG TAB PO SCH (05:10)
[2018-12-22] MEDS: ACETAMINOPHEN 500 MG TAB PO SCH ×3 (05:10→20:57)
[2018-12-22 08:08] VITALS: BP 111/52; PULSE 84; RESP 18
[2018-12-22] MEDS: DOCUSATE SODIUM 100 MG CAP PO SCH ×2 (09:04→20:56)
[2018-12-22 16:25] VITALS: BP 117/65; PULSE 90; RESP 18
[2018-12-22 19:53] VITALS: BP 115/60; PULSE 90; RESP 18
[2018-12-22] MEDS: GABAPENTIN 300 MG CAP PO SCH (20:56)
[2018-12-23] MEDS: oxyCODONE 5 MG TAB PO PRN ×2 (04:24→16:39)
[2018-12-23] MEDS: ACETAMINOPHEN 500 MG TAB PO SCH ×2 (05:17→14:25)
[2018-12-23] MEDS: PANTOPRAZOLE (EC) 40 MG TAB PO SCH (05:26)
[2018-12-23 07:44] VITALS: BP 128/67; PULSE 89; RESP 14
--- NOTE | 2018-12-23 11:38 | PN ---
Date/Time of Note Date/Time of Note DATE: 12/23/18 TIME: 11:37 Assessment/Plan VTE Prophylaxis Risk score (from Ns)>0 risk: 2 SCD applied (from Nsg): Yes Pharmacological prophylaxis: other Lines/Catheters IV Catheter Type (from Nrsg): Saline Lock Urinary Cath still in place: No Assessment/Plan Hospital Course 1. Right hip arthritis status post right total hip arthroplasty postop day #3 Pain control PT Aspirin for DVT prophylaxis being held secondary to anemia 2. Anemia secondary to acute blood loss-stable Transfused 2 units of packed red blood cells Monitor 3. Muscular neck pain-resolved Status post Soma x1 4. Constipation-resolved Status post Colace and senna Prophylaxis: SCDs, aspirin being held secondary to anemia DC planning: Likely DC per Ortho today Result Diagram: 12/23/1842112/23/18421 Results 24hrs Laboratory Tests Test 12/23/18 04:22 White Blood Count 5.2 # Red Blood Count 3.14 L Hemoglobin 9.3 L Hematocrit 28.0 L Mean Corpuscular Volume 89.2 Mean Corpuscular Hemoglobin 29.6 Mean Corpuscular Hemoglobin Concent 33.2 Red Cell Distribution Width 13.9 Platelet Count 268 # Mean Platelet Volume 8.7 Immature Granulocytes % 0.400 Neutrophils % 58.9 Lymphocytes % 29.2 Monocytes % 8.4 Eosinophils % 2.7 Basophils % 0.4 Nucleated Red Blood Cells % 0.0 Immature Granulocytes # 0.020 Neutrophils # 3.1 Lymphocytes # 1.5 Monocytes # 0.4 Eosinophils # 0.1 Basophils # 0.0 Nucleated Red Blood Cells # 0.0 Prothrombin Time 12.3 Prothrombin Time Ratio 1.0 INR International Normalized Ratio 0.90 Sodium Level 140 Potassium Level 4.2 Chloride Level 103 Carbon Dioxide Level 31 Anion Gap 6 Blood Urea Nitrogen 12 Creatinine 0.60 Est Glomerular Filtrat Rate mL/min > 60 Glucose Level 100 Calcium Level 8.9 Subjective 24 Hr Interval Summary Constitutional: no complaints Exam/Review of Systems Exam Vitals Vital Signs Date Temp Pulse Resp B/P (MAP) Pulse Ox O2 O2 Flow FiO2 Time Delivery Rate 12/23/18 99.4 89 14 128/67 100 Room Air 07:44 (87) 12/19/18 2.0 20:10 Intake and Output 12/22/18 12/22/18 12/23/18 1515:00 23:00 07:00 IntakeIntake Total 520 ml 440 ml 200 ml OutputOutput Total 250 ml 200 ml BalanceBalance 520 ml 190 ml 0 ml Constitutional: alert, oriented Respiratory: clear to auscultation Cardiovascular: regular rate and rhythm Gastrointestinal: soft; No distended Musculoskeletal: nl extremities to inspection Results Results 24hrs Laboratory Tests Test 12/23/18 04:22 White Blood Count 5.2 # Red Blood Count 3.14 L Hemoglobin 9.3 L Hematocrit 28.0 L Mean Corpuscular Volume 89.2 Mean Corpuscular Hemoglobin 29.6 Mean Corpuscular Hemoglobin Concent 33.2 Red Cell Distribution Width 13.9 Platelet Count 268 # Mean Platelet Volume 8.7 Immature Granulocytes % 0.400 Neutrophils % 58.9 Lymphocytes % 29.2 Monocytes % 8.4 Eosinophils % 2.7 Basophils % 0.4 Nucleated Red Blood Cells % 0.0 Immature Granulocytes # 0.020 Neutrophils # 3.1 Lymphocytes # 1.5 Monocytes # 0.4 Eosinophils # 0.1 Basophils # 0.0 Nucleated Red Blood Cells # 0.0 Prothrombin Time 12.3 Prothrombin Time Ratio 1.0 INR International Normalized Ratio 0.90 Sodium Level 140 Potassium Level 4.2 Chloride Level 103 Carbon Dioxide Level 31 Anion Gap 6 Blood Urea Nitrogen 12 Creatinine 0.60 Est Glomerular Filtrat Rate mL/min > 60 Glucose Level 100 Calcium Level 8.9 Medications Medication Current Medications Oxycodone HCl (Roxicodone) 15 mg Q4H PRN PO .PAIN Last administered on 12/23/18 10:51; Admin Dose 15 MG; Start 12/19/18 at 12:00 Oxycodone HCl (Roxicodone) 10 mg Q4H PRN PO .PAIN Last administered on 12/23/18at 04:24; Admin Dose 10 MG; Start 12/19/18 at 12:00 Oxycodone HCl (Roxicodone) 5 mg Q4H PRN PO .PAIN Last administered on 12/20/18 10:50; Admin Dose 5 MG; Start 12/19/18 at 12:00 Hydromorphone HCl (Dilaudid) 1 mg Q3H PRN IV .BREAKTHROUGH PAIN; Start 12/19/18 at 12:00 Acetaminophen (Tylenol Tab) 1,000 mg Q8 PO Last administered on 12/22/18at 20:57; Admin Dose 1,000 MG; Start 12/19/18 at 14:00 Ondansetron HCl (Zofran Inj) 4 mg Q4H PRN IV NAUSEA/VOMITING; Start 12/20/18 at 12:00 Gabapentin (Neurontin) 300 mg QHS PO Last administered on 12/22/18at 20:56; Admin Dose 300 MG; Start 12/19/18 at 21:00 Pantoprazole (Protonix Tab) 40 mg DAILY@06 PO Last administered on 12/22/18at 05:10; Admin Dose 40 MG; Start 12/20/18 at 06:00 Simethicone (Mylicon) 80 mg TID PRN PO .GAS; Start 12/19/18 at 12:00 Senna/Docusate Sodium (Senokot-S) 2 tab BID PRN PO .CONSTIPATION; Start 12/19/18 at 12:00 Magnesium Hydroxide (Milk Of Mag) 30 ml HS PRN PO .CONSTIPATION Last administered on 12/22/18at 05:12; Admin Dose 30 ML; Start 12/19/18 at 12:00 Bisacodyl (Dulcolax Supp) 10 mg DAILY PRN [place] .CONSTIPATION; Start 12/19/18 at 12:00 Sodium Biphosphate/ Sodium Phosphate (Fleet Enema) 133 ml DAILY PRN [place] .CONSTIPATION; Start 12/19/18 at 12:00 Diphenhydramine HCl (Benadryl) 25 mg Q4H PRN IV .ITCHING; Start 12/19/18 at 12:00 Naloxone HCl (Narcan) 0.2 mg Q2M PRN IV .RESP RATE; Start 12/19/18 at 12:00 IV Flush (NS 3 ml) 3 ml per protocol IV ; Start 12/19/18 at 12:00 Bethanechol Chloride (Urecholine) 25 mg URINARY CATH D/C PRN PO UNABLE TO VOID; Start 12/19/18 at 12:00 Aspirin (Halfprin) 81 mg BID PO Last administered on 12/20/18at 08:32; Admin Dose 81 MG; Start 12/20/18 at 09:00; Status Hold NITZA LEVI Dec 23, 2018 11:38
--- NOTE | 2018-12-23 13:42 | PN ---
Date/Time of Note Date/Time of Note DATE: 12/23/18 TIME: 13:38 Assessment/Plan Lines/Catheters IV Catheter Type (from Nrsg): Saline Lock Ramirez in Place (from Nrsg): No Assessment/Plan Chief Complaint/Hosp Course POD#4 s/p primary right LINA. After 2 units PRBCs her hemoglobin has remained stable. She is doing well physical therapy. She is ready to go home today with home health. -Post op H&H stable -PT/OT. Posterior Hip Precautions -Joints pain control protocol -DVT prophylaxis: SCD's, ASA 81 mg twice daily -Weight bearing status: as tolerated -Post-op XR ordered -Diet: ADAT Subjective 24 Hr Interval Summary Patient doing well No acute events overnight Pain is well controlled Exam/Review of Systems Vital Signs Vitals Vital Signs Date Temp Pulse Resp B/P (MAP) Pulse Ox O2 O2 Flow FiO2 Time Delivery Rate 12/23/18 99.4 89 14 128/67 100 Room Air 07:44 (87) 12/19/18 2.0 20:10 Intake and Output 12/22/18 12/22/18 12/23/18 1515:00 23:00 07:00 IntakeIntake Total 520 ml 440 ml 200 ml OutputOutput Total 250 ml 200 ml BalanceBalance 520 ml 190 ml 0 ml Exam Free Text/Dictation Right lower extremity: Incision: Clean, dry, and intact, no erythema Sensation intact to light touch in a sural, saphenous, deep peroneal, superficial peroneal, medial and lateral plantar nerve distribution. Motor is intact, patient able to dorsiflex and plantarflex ankle and extend and flex great toe. Dorsalis Pedis pulse +2, Brisk capillary refill. Compartments are soft. Calves non-tender to palpation bilaterally. Results Result Diagram: 12/23/18 0422 12/23/18 0422 GABRIEL ESPINAL MD Dec 23, 2018 13:42
--- NOTE | 2018-12-23 13:44 | DS ---
Date/Time of Note Date/Time of Note DATE: 12/23/18 TIME: 13:43 Discharge Summary Admission/Discharge Info Admit Date/Time Dec 19, 2018 at 05:49 Discharge Date/Time Hospital Course POD#4 s/p primary right LINA. Postoperative course was complicated by significan t acute drop in hemoglobin. This was monitored very carefully and it was deemed necessary to give a blood transfusion. After 2 units PRBCs her hemoglobin has remained stable. She is doing well physical therapy. Pain is well controlled. She is tolerating diet. She is ready to go home today with home health. -Post op H&H stable -PT/OT. Posterior Hip Precautions -Joints pain control protocol -DVT prophylaxis: SCD's, ASA 81 mg twice daily -Weight bearing status: as tolerated Follow-up in clinic at scheduled appointment approximately 2 weeks from surgery Home Meds No Active Prescriptions or Reported Meds Primary Care Provider Not On Staff Doctor Pending Labs Laboratory Tests Test 12/23/18 04:22 White Blood Count 5.2 10^3/ul (4.8-10.8) Red Blood Count 3.14 10^6/ul (4.20-5.40) Hemoglobin 9.3 g/dl (12.0-16.0) Hematocrit 28.0 % (37.0-47.0) Mean Corpuscular Volume 89.2 fl (82.0-101.0) Mean Corpuscular Hemoglobin 29.6 pg (29.0-33.0) Mean Corpuscular Hemoglobin Concent 33.2 g/dl (32.0-37.0) Red Cell Distribution Width 13.9 % (11.5-14.5) Platelet Count 268 10^3/UL (140-415) Mean Platelet Volume 8.7 fl (7.4-10.4) Immature Granulocytes % 0.400 % (0.001-0.429) Neutrophils % 58.9 % (39.0-77.0) Lymphocytes % 29.2 % (15.0-51.0) Monocytes % 8.4 % (0.0-11.0) Eosinophils % 2.7 % (0.0-7.0) Basophils % 0.4 % (0.0-2.0) Nucleated Red Blood Cells % 0.0 /100WBC (0.0-0.0) Immature Granulocytes # 0.020 10^3/ul (0.0-0.031) Neutrophils # 3.1 10^3/ul (1.6-7.5) Lymphocytes # 1.5 10^3/ul (0.8-2.9) Monocytes # 0.4 10^3/ul (0.3-0.9) Eosinophils # 0.1 10^3/ul (0.0-0.5) Basophils # 0.0 10^3/ul (0.0-0.1) Nucleated Red Blood Cells # 0.0 10^3/ul (0.0-0.0) Prothrombin Time 12.3 Sec (11.9-14.9) Prothrombin Time Ratio 1.0 INR International Normalized Ratio 0.90 Sodium Level 140 mmol/L (135-144) Potassium Level 4.2 mmol/L (3.5-5.1) Chloride Level 103 mmol/L (97-110) Carbon Dioxide Level 31 mmol/L (21-31) Anion Gap 6 (5-13) Blood Urea Nitrogen 12 mg/dl (7-20) Creatinine 0.60 mg/dl (0.44-1.00) Est Glomerular Filtrat Rate mL/min > 60 mL/min (>60) Glucose Level 100 mg/dl (70-220) Calcium Level 8.9 mg/dl (8.4-10.2) GABRIEL ESPINAL MD Dec 23, 2018 13:44
[2018-12-23 13:53] VITALS: BP 118/56; RESP 14
== END 2018-12-23 17:00 | disposition home health service (06) | DRG 470 ==
LOC: EDBD 05:49 → REC 05:49 → MS1 13:40
PROVIDERS: ADMIT Orthopaedic Surgery Adult Reconstructive Orthopaedic Surgery; ATTEND Orthopaedic Surgery Adult Reconstructive Orthopaedic Surgery
PROC: 0QU407Z Supplement Right Acetabulum with Autologous Tissue Substitute, Open Approach (ICD-10-PCS; 2018-12-19)
PROC: 0SR904A Replacement of Right Hip Joint with Ceramic on Polyethylene Synthetic Substitute, Uncemented, Open Approach (ICD-10-PCS; principal; 2018-12-19 07:30)
DX: M24.7 Protrusio acetabuli (principal); D62 Acute posthemorrhagic anemia; M16.7 Other unilateral secondary osteoarthritis of hip; Z79.82 Long term (current) use of aspirin
CPT/HCPCS: 36430; 72170; 73500; 73530; 80048; 81003; 85014; 85018; 85025; 85610; 85730; 86850; 86900; 86901; 86920; 87081; 87086; 88304; 88311; 93005; 97110; 97116; 97162; 97165; 97530; 97535; C1713; C1776; J0131; J0171; J0690; J0735; J1100; J1200; J1885; J2250; J2274; J2405; J2765; J2795; J3010; J3370; J7120; P9016; P9045

== ENCOUNTER 2019-04-24 08:13 | Inpatient (IN) | payer MEDICARE, OTHER ==
[2019-04-20 12:17] VITALS: BMI 25.8
[~2019-04-24] VITALS: Ht 156.2 cm; Wt 79.7 kg
[2019-04-24] VITALS (15 sets, daily range): BP systolic 91–135; BP diastolic 46–69; PULSE 74–96; RESP 13–20; Ht 156.2 cm; Wt 79.7 kg
[~2019-04-24 08:13] MED LIST changes: +ASPI81TA52 PO; +Acetaminophen PO; +BUPR150T6 PO; +BUSP10TA2 PO; +GABA300C16 PO; +LORA0.5T PO; +MELO15TA30 PO; +OXYC-481 PO; -TRANEXAMIC ACID 1GM/100ML(PMX) 100 ML PRE-OP IVPB ONE
[2019-04-24] MEDS ORDERED: ACETAMINOPHEN 1000MG/100ML IV 100 ML IVPB SCH (09:00)
[2019-04-24] MEDS ORDERED: GABAPENTIN 300 MG CAP PO SCH (09:00)
[2019-04-24] MEDS ORDERED: CELECOXIB 200 MG CAP PO ONE (10:00)
[2019-04-24] MEDS ORDERED: LANSOPRAZOLE 30 MG CAP PO ONE (10:00)
[2019-04-24] MEDS ORDERED: LACTATED RINGER'S 1,000 ML IV SCH (10:00)
[2019-04-24] MEDS ORDERED: TRANEXAMIC ACID 1GM/100ML(PMX) 100 ML AT CLOSING IVPB ONE (10:00)
[2019-04-24] MEDS ORDERED: TRANEXAMIC ACID 1GM/100ML(PMX) 100 ML PRE-OP IVPB ONE (10:00)
[2019-04-24] MEDS ORDERED: CEFAZOLIN 2 GM/50 ML (PMX) 50 ML IVPB ONE (10:00)
[2019-04-24] MEDS ORDERED: ONDANSETRON 4 MG INJ IV ONE (10:00)
[2019-04-24] MEDS ORDERED: DEXAMETHASONE 4 MG/ML 1 ML INJ IV ONE (10:00)
--- NOTE | 2019-04-24 11:01 | PREAC ---
Date/Time of Note Date/Time of Note DATE: 04/24/19 TIME: 10:59 Anesthesia Eval and Record Evaluation Time Pre-Procedure Interview DATE: 04/24/19 TIME: 10:59 Age 63 Sex female NPO: 8 hrs Preoperative diagnosis Left hip osteoarthritis Planned procedure Left total hip arthroplasty Past Medical History Past Medical History: Includes Musculoskeletal: Osteoarthritis GI: Obesity Psych: Depression Surgery & Anesthesia Issues No known issue Meds Anticoagulation: No Beta Radha within 24 hr: No Reason Beta Radha not given: Pt. not on B-Radha Reported Medications Lorazepam* (Lorazepam*) 0.5 Mg Tablet, 0.5 MG PO HS PRN for SLEEP, TAB 04/24/19 Meloxicam* (Mobic*) 15 Mg Tablet, 15 MG PO DAILY, #30 TAB 04/24/19 Bupropion Hcl* (Bupropion XL*) 150 Mg Tab.er.24h, 150 MG PO DAILY, TAB.SA 04/24/19 Buspirone Hcl* (Buspirone Hcl*) 10 Mg Tab, 10 MG PO BID, TAB 04/24/19 Aspirin (Low Dose Aspirin) 81 Mg Tablet.dr, 81 MG PO DAILY, #30 TAB 04/24/19 Current Medications Ropivacaine/ Clonidine/ Epinephrine/ Ketorolac Tromethamine/ Sodium Chloride INTRA-OP INJ ; Start 04/24/19 at 10:00 Lactated Ringer's 1,000 ml @ 125 mls/hr Q8H IV Last administered on 04/24/19at 09:12; Admin Dose 125 MLS/HR; Start 04/24/19 at 10:00; Stop 04/24/19 at 17:59 Acetaminophen 100 ml @ 400 mls/hr PREOP IVPB Last administered on 04/24/19at 09:17; Admin Dose 400 MLS/HR; Start 04/24/19 at 09:00; Stop 04/24/19 at 13:00 Gabapentin (Neurontin) 300 mg PREOP PO Last administered on 04/24/19at 09:16; Admin Dose 300 MG; Start 04/24/19 at 09:00; Stop 04/24/19 at 19:00 Meds reviewed: Yes Allergies Coded Allergies: No Known Allergy (Unverified , 04/24/19) Allergies Reviewed: Yes Labs/Studies Labs Reviewed: Reviewed by anesthesiologist Blood Bank Test 04/24/19 09:05 Antibody Screen NEGATIVE Blood Product Summary Counts Blood Type O POSITIVE Crossmatch Red Blood Cells test: N/A Pre-procedure Exam Last vitals Vital Signs Date Temp Pulse Resp B/P (MAP) Pulse Ox O2 O2 Flow FiO2 Time Delivery Rate 04/24/19 98.5 76 16 135/69 96 Room Air 09:49 (91) Airway: Adequate mouth opening Mallampati: Mallampati II Teeth: Normal Lung: Normal Heart: Normal ASA Physical Status ASA physical status: 2 Emergency: None Planned Anesthetic General/MAC: ETT Planned Pain Management Sub-arachniod narcotics, Single shot nerve block, Parenteral pain med Pre-operative Attestations Prior to commencing anesthesia and surgery, the patient was re-evaluated, there was verification of: *The patient's identity *The results of appropriate recent lab work and preoperative vital signs *The above evaluation not changing prior to induction *Anesthetic plan, risk benefits, alternative and complications discussed with patient/family; questions answered; patient/family understands, accepts and wishes to proceed. ROSLYN CAREY MD Apr 24, 2019 11:01
--- NOTE | 2019-04-24 11:37 | HPN ---
Date/Time of Note Date/Time of Note DATE: 04/24/19 TIME: 11:35 Interval H&P Admission Note Pt. seen H&P reviewed: No system changes Patient denies fever, chills, shortness of breath, chest pain, nausea/vomiting, constipation, diarrhea, numbness, and tingling. The patient did accidentally take aspirin yesterday. As she misunderstood the directions regarding her aspirin versus the gabapentin. It was 1 dose of 81 mg. I explained this patient that this does not increase her bleeding risk and risk for requiring a blood transfusion. Explained to her that I believe with care the surgery can be performed safely as there are patients that are required to stay on aspirin through surgery for cardiac or stroke purposes. She understood the increased risk. She strongly wished to proceed with surgery. MUSCULOSKELETAL: Left lower extremity extremity Skin intact Sensation intact to light touch in a sural, saphenous, deep peroneal, superfi cial peroneal, medial and lateral plantar nerve distribution. Motor is intact, patient able to dorsiflex and plantarflex ankle and extend and flex great toe. Dorsalis Pedis pulse +2, Brisk capillary refill. Compartments are soft. Calves non-tender to palpation bilaterally. GABRIEL ESPINAL MD Apr 24, 2019 11:37
[2019-04-24] MEDS ORDERED: SEVOFLURANE 15 MIN ONE (12:00)
[2019-04-24] MEDS ORDERED: TRANEXAMIC ACID 1GM/100ML(PMX) 200 ML ONE (12:03)
[2019-04-24] MEDS ORDERED: GLYCOPYRROLATE 0.4 MG INJ ONE ×2 (12:09→14:59)
[2019-04-24] MEDS ORDERED: PROPOFOL 20 ML ONE (12:09)
[2019-04-24] MEDS ORDERED: ROCURONIUM 50 MG INJ ONE (12:09)
[2019-04-24] MEDS ORDERED: NEOSTIGMINE 3 MG/3 ML SYRINGE ONE ×2 (12:09→14:59)
[2019-04-24] MEDS ORDERED: SUCCINYLCHOLINE CHLORIDE 100 MG/5 ML SYG IV ONE (12:09)
[2019-04-24] MEDS ORDERED: LIDOCAINE 2% (SDV) 5 ML INJ ONE (12:09)
[2019-04-24] MEDS ORDERED: CEFAZOLIN 1 GM INJ ONE (12:13)
[2019-04-24] MEDS ORDERED: METOCLOPRAMIDE 10 MG INJ ONE (12:13)
[2019-04-24] MEDS ORDERED: ONDANSETRON 4 MG INJ ONE (12:13)
[2019-04-24] MEDS ORDERED: ROPIVACAINE 0.5 % 30 ML VIAL ONE (12:13)
[2019-04-24] MEDS ORDERED: DEXAMETHASONE 4 MG/ML 5 ML INJ ONE (13:11)
[2019-04-24] MEDS ORDERED: EPHEDrine 25 MG/5 ML SYG ONE (14:02)
[2019-04-24] MEDS ORDERED: MEPERIDINE 25 MG INJ IV PRN (16:00)
[2019-04-24] MEDS ORDERED: hydrALAzine 20 MG INJ IV PRN (16:00)
[2019-04-24] MEDS ORDERED: DIPHENHYDRAMINE 50 MG INJ IV PRN ×2 (16:00→16:30)
[2019-04-24] MEDS ORDERED: LABETALOL HCL 20MG INJ IV PRN (16:00)
[2019-04-24] MEDS ORDERED: METOCLOPRAMIDE 10 MG INJ IV PRN (16:00)
[2019-04-24] MEDS ORDERED: ONDANSETRON 4 MG INJ IV PRN (16:00)
[2019-04-24] MEDS ORDERED: MIDAZOLAM 1 MG/ML 2 ML INJ IV PRN (16:00)
[2019-04-24] MEDS ORDERED: FENTAnyl 50 MCG/ML VIAL IV PRN ×3 (16:00)
[2019-04-24] MEDS ORDERED: HYDROmorphONE 1 MG/5 ML IV SYRINGE IV PRN ×3 (16:00)
[2019-04-24] MEDS ORDERED: EPHEDrine 25 MG/5 ML SYG IV PRN (16:00)
--- NOTE | 2019-04-24 16:15 | OPR ---
Date/Time of Note Date/Time of Note DATE: 04/24/19 TIME: 16:14 Operative Report Procedure Date: Apr 24, 2019 Preoperative Diagnosis Left hip osteoarthritis. Left hip protrusio Postoperative Diagnosis As above Operation/Procedure Performed Left total hip arthroplasty modifier 22 for increased difficulty in time secondary to patient's abnormal anatomy and severe protrusio hip with acetabulum in continuity with internal pelvis. Surgeon see signature line Velvet Cutter GEMMA [place] Anesthesia Type: general, spinal Estimated Blood Loss: 200 - 250 ml's Transfusion none Specimen none Grafts/Implants Implant: DePuy: Gription-pinnacle acetabulum size 56 mm Polyethylene Size 36 mm neutral Femoral stem: [place] press-fit size 6, high offset Femoral head: 36 +1.5 mm ceramic. Montage 2.5 cc Complications none Pt Condition Post Procedure: stable Disposition: PACU Procedure Description PREOP DIAGNOSIS: Left hip osteoarthritis and left hip protrusio. POSTOP DIAGNOSIS: Same. SURGICAL PROCEDURE: Left total hip arthroplasty (CPT code 02334). Modifier 22 for increased difficulty in increasing time by approximately 50% secondary to patient's abnormal anatomy and severe protrusio and bone loss. INDICATIONS: The patient is a 63 year-old woman with an orthopaedic history significant for progressively worsening left hip pain. The patient failed conservative management and wished to pursue surgical options. On physical exam, they walk with a moderate antalgic gait. No previous open surgical scars. Guarded range of motion. Significant contractures of all planes. Neurovascularly intact. Radiographs reveal advanced osteoarthritis with DJD and protrusion of the hip into the pelvis. INFORMED CONSENT: The operative procedure was explained using diagrams and/or three-dimensional models. The rehabilitation, the potential risks, benefits and alternatives were discussed at length. Specific risks discussed included but were not limited to excessive blood loss and the need for transfusion and therefore the risk of transmissible disease or transfusion reaction, deep infection and the potential need for repetitive debridements, implant removal, long-term antibiotic therapy, possibly requiring deep venous access, leg-length discrepancy, dislocation, possibly recurrent, with the need for closed versus open reduction, bracing, femoral or acetabular fracture and the need for further surgery for fixation, neurovascular injury with temporary or permanent numbness, tingling, weakness or paralysis, deep venous thrombosis, pulmonary embolism and , persistent pain, weakness, or limp, late aseptic loosening and the need for revision, polyethylene wear-induced osteolysis and related problems, and finally, a wide variety of unanticipated medical problems. The opportunity to ask questions and address any concerns was provided. The patient wished to proceed. FINDINGS: The femoral head was incarcerated in the acetabulum and needed to be cut out piecemeal. The acetabulum was extremely inflamed with significant bone loss superiorly and medially. There was continuity between the acetabulum and the inner pelvic contents. There was perforation of the medial wall. Extreme nega tive anteversion of the femoral neck of around 80 degrees SURGERY IN DETAIL: The patient was taken into the Operating Room and placed supine on the operating table. Preoperatively, they were administered Ancef. They were administered spinal and general anesthesia by the Anesthesia Department. Dexamethasone 10mg IV was administered. The patient was placed on an [facility] Lateral Positioner in a right lateral decubitus position with the left hip superior. An axillary roll was placed, all pressure points were confirmed padded. The left hip region was prepped and draped in sterile fashion. A surgical pause was performed, correctly identifying the patient's name, the correct medical record number, the correct diagnosis, correct surgical procedure, and the correct extremity. 1g of tranexamic acid was dosed at the time of incision. A posterolateral skin incision, approximately 15-20 cm in length was made, centered over the greater trochanter, skin and subcutaneous tissue sharply dissected. Deep fascial layer was identified and incised in line with the skin incision. Gluteus medius was retracted anteriorly. Piriformis tendon was id entified, tagged with a stitch, and incised close to its insertion. The interval between the gluteus minimus and hip capsule was developed superiorly, and a superior retractor was placed. Short external rotators were subperiosteally incised from the posterior proximal femur to the level of the lesser trochanter and an inferior retractor was placed. A posterior capsulotomy was performed. Two tag stitches were placed in the capsule. The hip was extremely stiff. Secondary to mechanical block from the protrusio hip could not be internally rotated. In order to dislocate the hip and neck need to be cut in situ. After the femoral neck cut the hip was able to be internally rotated. The hip was then translated anteriorly to better visualize the head and acetabulum. The head remained incarcerated in the acetabulum. A corkscrew was used to try to extract the femoral head. However this was not possible. It was required to remove the femoral head piecemeal using osteotomes. At this time the femur was internally rotated and the femoral neck osteotomy was refined at the preoperatively templated level. [place] anteversion of the femur was extreme at about 80 degrees. A radial incision was made in the inferior capsule to the level of transverse acetabular ligament, which was identified, and an inferior retractor was placed inferior to the transverse acetabular ligament or inferior to the cotyloid notch. An anterior retractor was placed at the rim of the acetabulum. The acetabular labrum was then sharply excised. There was a large pulvinar in the base of the acetabulum, which was removed with electrocautery. There was severe synovitis and inflammation throughout the acetabulum. There was cyst formation. There is significant bone loss superiorly and medially. There was a perforation of the medial wall from the severe protrusio. The acetabulum was then sequentially reamed, beginning at 43 mm, up to a size 55 outer diameter reamer. Bone graft from the femoral head was morselized and placed medially to filling the defect of the medial wall. In addition about 2.5 cc of montage was used as bone graft placed medially and superiorly and acetabulum. A size 56 [place] cup was inserted. A single dome screw was placed with excellent purchase, and a neutral polyethylene trial was inserted and attention was placed to preparing the femur. Soft tissues were removed from the junction of the greater trochanter and the femoral neck osteotomy. A box osteotome was used lateralize the starting point. A starting awl was utilized, followed by a lateralizing reamer, followed by axial reamers for the [place] system up to a size 6. The femoral canal was then broached up to a size 6. A neutral femoral head was inserted and the hip was reduced. Range of motion and stability were quite good, including forward flexion to greater than 90 degrees, internal rotation greater than 80 degrees at 90 degrees flexion, internal rotation greater than 80 degrees with the hip adducted and at 45 degrees of flexion. External Rotation was also tested, and was stable with no impingement or instability at full extension and 30 degrees external rotation. [place] sign was 60 degrees. Intraoperative x-ray revealed the hip to have satisfactory position of all components. The hip was dislocated in controlled manner using a bone hook and the trial components removed. Local anesthetic was injected periarticular. A formal 36 mm neutral polyethylene was inserted into the cup, confirmed seated and locked. On the femoral side, a [place] size 6 high offset stem was inserted. A 36 +1.5 mm ceramic head was inserted onto the taper. The hip was reduced. One final time range of motion, stability, and soft tissue tension were satisfactory. The wound was thoroughly irrigated. 1g of tranexamic acid was dosed. The previously tagged arthrotomy, as well as the piriformis tendon was reattached to the gluteus medius at the level the greater trochanter. The deep fascial layer was closed with 1 Vicryl in a [id number], interrupted fashion, deep subcutaneous tissues irrigated and closed with 0 Vicryl interrupted fashion, subcutaneous tissues irrigated, closed with 2-0 Vicryl in an inverted, interru pted fashion. The skin was closed with lizzy. A sterile dressing was applied, abduction pillow was placed between the legs, an d the patient was transferred to a supine position. Postoperative clinical leg lengths, rotation of limb were neutral and symmetric. All Counts were correct x2 DISPOSITION: Patient transferred to PACU in stable condition. The patient will be weight be aring as tolerated on the operative extremity. PT will begin POD#0 if available. Posterior hip precautions for 3 months with an abduction pillow. Postoperative AP pelvis will be ordered in PACU. Bilateral knee high SCDs will be worn while admitted. ASA 81mg BID will be given for DVT prophylaxis for 6 weeks. Pain will be controlled with medication. The patient will follow up in clinic in approximately 2 weeks. Implant: DePuy: [employer]-pinnacle acetabulum size 56 mm Polyethylene Size 36 mm neutral Femoral stem: [place] press-fit size 6, high offset Femoral head: 36 +1.5 mm ceramic. Montage 2.5 cc GABRIEL ESPINAL MD Apr 24, 2019 16:15
[2019-04-24] MEDS ORDERED: NALOXONE (0.4 MG/ML) INJ IV PRN (16:30)
[2019-04-24] MEDS ORDERED: NACL 0.9% 3 ML SYG IV SCH (16:30)
[2019-04-24] MEDS ORDERED: DOCUSATE SODIUM 100 MG CAP PO ONE (16:30)
[2019-04-24] MEDS ORDERED: NA PHOSPHATE/BIPHOS 133 ML ENEMA PR PRN (16:30)
[2019-04-24] MEDS ORDERED: oxyCODONE 5 MG TAB PO PRN (16:30)
[2019-04-24] MEDS ORDERED: BISACODYL 10 MG SUPP PR PRN (16:30)
[2019-04-24] MEDS ORDERED: HYDROmorphONE 1 MG/ML SYG IV PRN (16:30)
[2019-04-24] MEDS ORDERED: MAGNESIUM HYDROXIDE 30ML CUP PO PRN (16:30)
[2019-04-24] MEDS ORDERED: SENNA/DOCUSATE NA (8.6MG/50MG) TAB PO PRN (16:30)
[2019-04-24] MEDS ORDERED: BETHANECHOL 25 MG TAB PO PRN (16:30)
[2019-04-24] MEDS: LACTATED RINGER'S 1,000 ML IV SCH (17:00)
--- NOTE | 2019-04-24 17:41 | PAC ---
Date/Time of Note Date/Time of Note DATE: 04/24/19 TIME: 17:40 Post-Anesthesia Notes Post-Anesthesia Note Last documented vital signs Vital Signs Date Temp Pulse Resp B/P (MAP) Pulse Ox O2 O2 Flow FiO2 Time Delivery Rate 04/24/19 83 16 100/55 97 Room Air 17:21 (70) 04/24/19 97.9 6.0 16:22 Activity: WNL Respiratory function: WNL Cardiovascular function: WNL Mental status: Baseline Pain reasonably controlled: Yes Hydration appropriate: Yes Nausea/Vomiting absent: Yes Comments BT: 98.2 ROSLYN CAREY MD Apr 24, 2019 17:41
--- NOTE | 2019-04-24 19:09 | CONS ---
Assessment/Plan Assessment/Plan Hospital Course (Demo Recall) 1. Left hip arthritis status post left total hip arthroplasty postop day 0 Pain control PT Aspirin for DVT prophylaxis Prophylaxis: Aspirin Consultation Date/Type/Reason Admit Date/Time Apr 24, 2019 at 08:13 Date/Time of Note DATE: 04/24/19 TIME: 19:07 Hx of Present Illness Patient is a 63-year-old female with no significant medical history except for osteoarthritis of both hips, patient is status post right hip replacement in the past and was admitted for elective left total hip arthroplasty. Patient has no complaints at this time, patient denies any dizziness or shortness of breath. Constitutional: no complaints, improved Eyes: no complaints ENT: no complaints Respiratory: no complaints Cardiovascular: no complaints Gastrointestinal: no complaints Genitourinary: no complaints Musculoskeletal: no complaints Skin: no complaints Neurologic: no complaints Endocrine: no complaints Lymphatic: no complaints Psychological: no complaints, nl mood/affect Immunologic: no complaints Past Medical History Arthritis Home Meds Reported Medications Lorazepam* (Lorazepam*) 0.5 Mg Tablet, 0.5 MG PO HS PRN for SLEEP, TAB 04/24/19 Meloxicam* (Mobic*) 15 Mg Tablet, 15 MG PO DAILY, #30 TAB 04/24/19 Bupropion Hcl* (Bupropion XL*) 150 Mg Tab.er.24h, 150 MG PO DAILY, TAB.SA 04/24/19 Buspirone Hcl* (Buspirone Hcl*) 10 Mg Tab, 10 MG PO BID, TAB 04/24/19 Aspirin (Low Dose Aspirin) 81 Mg Tablet.dr, 81 MG PO DAILY, #30 TAB 04/24/19 Medications Current Medications Hydromorphone HCl (Dilaudid) 0.2 mg PACU PRN IV MILD PAIN 1-3; Start 04/24/19 at 16:00; Stop 04/24/19 at 20:00 Hydromorphone HCl (Dilaudid) 0.4 mg PACU PRN IV MOD PAIN 4-6; Start 04/24/19 at 16:00; Stop 04/24/19 at 20:00 Hydromorphone HCl (Dilaudid) 0.6 mg PACU PRN IV SEVERE PAIN 7-10; Start 04/24/19 at 16:00; Stop 04/24/19 at 20:00 Fentanyl (Sublimaze) 25 mcg PACU ORDER PRN IV MILD PAIN 1-3; Start 04/24/19 at 16:00; Stop 04/24/19 at 20:00 Fentanyl (Sublimaze) 50 mcg PACU ORDER PRN IV MOD PAIN 4-6; Start 04/24/19 at 16:00; Stop 04/24/19 at 20:00 Fentanyl (Sublimaze) 75 mcg PACU ORDER PRN IV SEVERE PAIN 7-10; Start 04/24/19 at 16:00; Stop 04/24/19 at 20:00 Ondansetron HCl (Zofran Inj) 4 mg PACU ORDER PRN IV NAUSEA/VOMITING; Start 04/24/19 at 16:00; Stop 04/24/19 at 20:00 Metoclopramide HCl (Reglan) 10 mg PACU ORDER PRN IV NAUSEA/VOMITING; Start 04/24/19 at 16:00; Stop 04/24/19 at 20:00 Labetalol HCl (Labetalol) 5 mg PACU ORDER PRN IV HIGH BLOOD PRESSURE; Start 04/24/19 at 16:00; Stop 04/24/19 at 20:00 Hydralazine HCl (Apresoline) 5 mg PACU ORDER PRN IV HIGH BLOOD PRESSURE; Start 04/24/19 at 16:00; Stop 04/24/19 at 20:00 Ephedrine Sulfate 5 mg PACU ORDER PRN IV BLOOD PRESSURE SUPPORT; Start 04/24/19 at 16:00; Stop 04/24/19 at 20:00 Meperidine HCl (Demerol) 25 mg PACU ORDER PRN IV .RIGORS; Start 04/24/19 at 16:00; Stop 04/24/19 at 20:00 Diphenhydramine HCl (Benadryl) 25 mg PACU ORDER PRN IV .PRURITUS; Start 04/24/19 at 16:00; Stop 04/24/19 at 20:00 Midazolam HCl (Versed) 0.5 mg PACU ORDER PRN IV .ANXIETY; Start 04/24/19 at 16:00; Stop 04/24/19 at 20:00 Lactated Ringer's 1,000 ml @ 80 mls/hr [id number] IV ; Start 04/24/19 at 17:00 Oxycodone HCl (Roxicodone) 15 mg Q4H PRN PO .PAIN; Start 04/24/19 at 16:30 Oxycodone HCl (Roxicodone) 10 mg Q4H PRN PO .PAIN; Start 04/24/19 at 16:30 Oxycodone HCl (Roxicodone) 5 mg Q4H PRN PO .PAIN; Start 04/24/19 at 16:30 Hydromorphone HCl (Dilaudid) 1 mg Q3H PRN IV .BREAKTHROUGH PAIN; Start 04/24/19 at 16:30 Acetaminophen (Tylenol Tab) 1,000 mg Q8 PO ; Start 04/24/19 at 22:00 Ondansetron HCl (Zofran Inj) 4 mg Q4H PRN IV NAUSEA/VOMITING; Start 04/25/19 at 16:30 Cefazolin Sodium/ Dextrose 50 ml @ 100 mls/hr Q8H IVPB ; Start 04/24/19 at 20:00; Stop 04/25/19 at 12:29 Gabapentin (Neurontin) 300 mg QHS PO ; Start 04/24/19 at 21:00 Dexamethasone (Decadron) 10 mg ONCE ONCE IV ; Start 04/25/19 at 07:00; Stop 04/25/19 at 07:01 Pantoprazole (Protonix Tab) 40 mg DAILY@06 PO ; Start 04/25/19 at 06:00 Docusate Sodium (Colace) 200 mg BID PO ; Start 04/25/19 at 09:00; Stop 04/27/19 at 21:01 Simethicone (Mylicon) 80 mg TID PRN PO .GAS; Start 04/24/19 at 16:30 Senna/Docusate Sodium (Senokot-S) 2 tab BID PRN PO .CONSTIPATION; Start 04/24/19 at 16:30 Magnesium Hydroxide (Milk Of Mag) 30 ml HS PRN PO .CONSTIPATION; Start 04/24/19 at 16:30 Bisacodyl (Dulcolax Supp) 10 mg DAILY PRN ID .CONSTIPATION; Start 04/24/19 at 16:30 Sodium Biphosphate/ Sodium Phosphate (Fleet Enema) 133 ml DAILY PRN ID .CONSTIPATION; Start 04/24/19 at 16:30 Diphenhydramine HCl (Benadryl) 25 mg Q4H PRN IV .ITCHING; Start 04/24/19 at 16:30 Naloxone HCl (Narcan) 0.2 mg Q2M PRN IV .RESP RATE; Start 04/24/19 at 16:30 IV Flush (NS 3 ml) 3 ml per protocol IV ; Start 04/24/19 at 16:30 Bethanechol Chloride (Urecholine) 25 mg URINARY CATH D/C PRN PO UNABLE TO VOID; Start 04/24/19 at 16:30 Aspirin (Halfprin) 81 mg BID PO ; Start 04/25/19 at 09:00 Allergies: Coded Allergies: No Known Allergy (Unverified , 04/24/19) Past Surgical History History of right hip replacement, now left hip replacement Family History Significant Family History: no pertinent family hx Social History Alcohol Use: rarely Smoking Status: Never smoker Drug Use: none Exam/Review of Systems Exam Vitals Vital Signs Date Temp Pulse Resp B/P (MAP) Pulse Ox O2 O2 Flow FiO2 Time Delivery Rate 04/24/19 97.5 76 18 91/49 (63) 99 Room Air 19:00 04/24/19 6.0 16:22 Constitutional: alert, oriented Respiratory: clear to auscultation Cardiovascular: regular rate and rhythm Gastrointestinal: soft; No distended Musculoskeletal: nl extremities to inspection Results Results 24hrs Laboratory Tests Test 04/24/19 09:05 Prothrombin Time 11.4 L Prothrombin Time Ratio 0.9 INR International Normalized Ratio 0.82 Activated Partial Thromboplast Time 29.3 Medications Medication Current Medications Hydromorphone HCl (Dilaudid) 0.2 mg PACU PRN IV MILD PAIN 1-3; Start 04/24/19 at 16:00; Stop 04/24/19 at 20:00 Hydromorphone HCl (Dilaudid) 0.4 mg PACU PRN IV MOD PAIN 4-6; Start 04/24/19 at 16:00; Stop 04/24/19 at 20:00 Hydromorphone HCl (Dilaudid) 0.6 mg PACU PRN IV SEVERE PAIN 7-10; Start 04/24/19 at 16:00; Stop 04/24/19 at 20:00 Fentanyl (Sublimaze) 25 mcg PACU ORDER PRN IV MILD PAIN 1-3; Start 04/24/19 at 16:00; Stop 04/24/19 at 20:00 Fentanyl (Sublimaze) 50 mcg PACU ORDER PRN IV MOD PAIN 4-6; Start 04/24/19 at 16:00; Stop 04/24/19 at 20:00 Fentanyl (Sublimaze) 75 mcg PACU ORDER PRN IV SEVERE PAIN 7-10; Start 04/24/19 at 16:00; Stop 04/24/19 at 20:00 Ondansetron HCl (Zofran Inj) 4 mg PACU ORDER PRN IV NAUSEA/VOMITING; Start 04/24/19 at 16:00; Stop 04/24/19 at 20:00 Metoclopramide HCl (Reglan) 10 mg PACU ORDER PRN IV NAUSEA/VOMITING; Start 04/24/19 at 16:00; Stop 04/24/19 at 20:00 Labetalol HCl (Labetalol) 5 mg PACU ORDER PRN IV HIGH BLOOD PRESSURE; Start 04/24/19 at 16:00; Stop 04/24/19 at 20:00 Hydralazine HCl (Apresoline) 5 mg PACU ORDER PRN IV HIGH BLOOD PRESSURE; Start 04/24/19 at 16:00; Stop 04/24/19 at 20:00 Ephedrine Sulfate 5 mg PACU ORDER PRN IV BLOOD PRESSURE SUPPORT; Start 04/24/19 at 16:00; Stop 04/24/19 at 20:00 Meperidine HCl (Demerol) 25 mg PACU ORDER PRN IV .RIGORS; Start 04/24/19 at 16:00; Stop 04/24/19 at 20:00 Diphenhydramine HCl (Benadryl) 25 mg PACU ORDER PRN IV .PRURITUS; Start 04/24/19 at 16:00; Stop 04/24/19 at 20:00 Midazolam HCl (Versed) 0.5 mg PACU ORDER PRN IV .ANXIETY; Start 04/24/19 at 16:00; Stop 04/24/19 at 20:00 Lactated Ringer's 1,000 ml @ 80 mls/hr [id number] IV ; Start 04/24/19 at 17:00 Oxycodone HCl (Roxicodone) 15 mg Q4H PRN PO .PAIN; Start 04/24/19 at 16:30 Oxycodone HCl (Roxicodone) 10 mg Q4H PRN PO .PAIN; Start 04/24/19 at 16:30 Oxycodone HCl (Roxicodone) 5 mg Q4H PRN PO .PAIN; Start 04/24/19 at 16:30 Hydromorphone HCl (Dilaudid) 1 mg Q3H PRN IV .BREAKTHROUGH PAIN; Start 04/24/19 at 16:30 Acetaminophen (Tylenol Tab) 1,000 mg Q8 PO ; Start 04/24/19 at 22:00 Ondansetron HCl (Zofran Inj) 4 mg Q4H PRN IV NAUSEA/VOMITING; Start 04/25/19 at 16:30 Cefazolin Sodium/ Dextrose 50 ml @ 100 mls/hr Q8H IVPB ; Start 04/24/19 at 20:00; Stop 04/25/19 at 12:29 Gabapentin (Neurontin) 300 mg QHS PO ; Start 04/24/19 at 21:00 Dexamethasone (Decadron) 10 mg ONCE ONCE IV ; Start 04/25/19 at 07:00; Stop 04/25/19 at 07:01 Pantoprazole (Protonix Tab) 40 mg DAILY@06 PO ; Start 04/25/19 at 06:00 Docusate Sodium (Colace) 200 mg BID PO ; Start 04/25/19 at 09:00; Stop 04/27/19 at 21:01 Simethicone (Mylicon) 80 mg TID PRN PO .GAS; Start 04/24/19 at 16:30 Senna/Docusate Sodium (Senokot-S) 2 tab BID PRN PO .CONSTIPATION; Start 04/24/19 at 16:30 Magnesium Hydroxide (Milk Of Mag) 30 ml HS PRN PO .CONSTIPATION; Start 04/24/19 at 16:30 Bisacodyl (Dulcolax Supp) 10 mg DAILY PRN ID .CONSTIPATION; Start 04/24/19 at 16:30 Sodium Biphosphate/ Sodium Phosphate (Fleet Enema) 133 ml DAILY PRN ID .CONSTIPATION; Start 04/24/19 at 16:30 Diphenhydramine HCl (Benadryl) 25 mg Q4H PRN IV .ITCHING; Start 04/24/19 at 16:30 Naloxone HCl (Narcan) 0.2 mg Q2M PRN IV .RESP RATE; Start 04/24/19 at 16:30 IV Flush (NS 3 ml) 3 ml per protocol IV ; Start 04/24/19 at 16:30 Bethanechol Chloride (Urecholine) 25 mg URINARY CATH D/C PRN PO UNABLE TO VOID; Start 04/24/19 at 16:30 Aspirin (Halfprin) 81 mg BID PO ; Start 04/25/19 at 09:00 NITZA LEVI Apr 24, 2019 19:09
[2019-04-24] MEDS: GABAPENTIN 300 MG CAP PO SCH (20:48)
[2019-04-24] MEDS: ACETAMINOPHEN 500 MG TAB PO SCH (20:49)
[2019-04-24] MEDS: CEFAZOLIN 2 GM/50 ML (PMX) 50 ML IVPB SCH (21:23)
[2019-04-25 00:53] VITALS: BP 90/49; PULSE 74; RESP 18
[2019-04-25] MEDS: oxyCODONE 5 MG TAB PO PRN ×3 (00:59→16:36)
[2019-04-25] MEDS: CEFAZOLIN 2 GM/50 ML (PMX) 50 ML IVPB SCH ×2 (04:23→11:34)
[2019-04-25] MEDS: LACTATED RINGER'S 1,000 ML IV SCH ×2 (04:27→18:00)
[2019-04-25] MEDS: ACETAMINOPHEN 500 MG TAB PO SCH ×3 (06:33→21:11)
[2019-04-25] MEDS: PANTOPRAZOLE (EC) 40 MG TAB PO SCH (06:33)
[2019-04-25] MEDS ORDERED: DEXAMETHASONE 10 MG/ML 1 ML INJ IV ONE (07:00)
[2019-04-25 07:31] VITALS: BP 86/48; PULSE 77; RESP 19
[2019-04-25 07:38] VITALS: BP 90/54
[2019-04-25] MEDS: ASPIRIN (EC) 81 MG TAB PO SCH ×2 (09:22→21:10)
[2019-04-25] MEDS: DOCUSATE SODIUM 100 MG CAP PO SCH ×2 (09:22→21:10)
--- NOTE | 2019-04-25 10:18 | PN ---
Date/Time of Note Date/Time of Note DATE: 04/25/19 TIME: 10:17 Assessment/Plan Lines/Catheters IV Catheter Type (from Nrsg): Saline Lock Ramirez in Place (from Nrsg): Yes Assessment/Plan Chief Complaint/Hosp Course POD#1 s/p primary left LINA. Patient did very well with therapy today. Pain is well controlled. Tolerating diet well. -Post op H&H stable -PT/OT. Posterior Hip Precautions -Joints pain control protocol -DVT prophylaxis: SCD's, ASA 81 mg twice daily x6 weeks -Weight bearing status: as tolerated -Post-op XR ordered -Abx: 24h vanc/ancef -Diet: ADAT -Ramirez: Discontinue -Discharge planning consult Planned Discharge Date: Today Discharge to home with home health Subjective 24 Hr Interval Summary Patient doing well No acute events overnight Pain is well controlled Exam/Review of Systems Vital Signs Vitals Vital Signs Date Temp Pulse Resp B/P (MAP) Pulse Ox O2 O2 Flow FiO2 Time Delivery Rate 04/25/19 90/54 (66) 07:38 04/25/19 98.5 77 19 97 07:31 04/25/19 Room Air 00:53 04/24/19 6.0 16:22 Intake and Output 04/24/19 04/24/19 04/25/19 1515:00 23:00 07:00 IntakeIntake Total 2600 ml 100 ml 1490 ml OutputOutput Total 1200 ml 200 ml 1200 ml BalanceBalance 1400 ml -100 ml 290 ml Exam Free Text/Dictation Left lower extremity: Dressing: clean, dry, and intact, no erythema Sensation intact to light touch in a sural, saphenous, deep peroneal, superf icial peroneal, medial and lateral plantar nerve distribution. Motor is intact, patient able to dorsiflex and plantarflex ankle and extend and flex great toe. Dorsalis Pedis pulse +2, Brisk capillary refill. Compartments are soft. Calves non-tender to palpation bilaterally. Results Result Diagram: 04/25/19 0524 04/25/19 0524 GABRIEL ESPINAL MD Apr 25, 2019 10:18
[2019-04-25 14:40] VITALS: BP 107/50; PULSE 81; RESP 16
--- NOTE | 2019-04-25 15:51 | PN ---
Date/Time of Note Date/Time of Note DATE: 04/25/19 TIME: 15:50 Assessment/Plan VTE Prophylaxis Risk score (from Nsg)>0 risk: 10 SCD applied (from Nsg): Yes Pharmacological prophylaxis: other Lines/Catheters IV Catheter Type (from Nrsg): Saline Lock Urinary Cath still in place: No Assessment/Plan Hospital Course 1. Left hip arthritis status post left total hip arthroplasty postop day 1 Pain control PT Aspirin for DVT prophylaxis Prophylaxis: Aspirin DC planning: Anticipate DC to home with home health tomorrow Result Diagram: 04/25/19 0524 04/25/19 0524 Results 24hrs Laboratory Tests Test 04/25/19 05:24 04/25/19 07:13 White Blood Count 10.1 # Red Blood Count 3.13 L Hemoglobin 9.2 L Hematocrit 27.8 L Mean Corpuscular Volume 88.8 Mean Corpuscular Hemoglobin 29.4 Mean Corpuscular Hemoglobin Concent 33.1 Red Cell Distribution Width 13.7 Platelet Count 241 Mean Platelet Volume 8.8 Immature Granulocytes % 0.400 Neutrophils % 78.7 H Lymphocytes % 14.4 L Monocytes % 6.4 Eosinophils % 0.0 Basophils % 0.1 Nucleated Red Blood Cells % 0.0 Immature Granulocytes # 0.040 H Neutrophils # 8.0 H Lymphocytes # 1.5 Monocytes # 0.7 Eosinophils # 0.0 Basophils # 0.0 Nucleated Red Blood Cells # 0.0 Prothrombin Time 13.5 Prothrombin Time Ratio 1.1 INR International Normalized Ratio 1.02 Sodium Level 138 Potassium Level 3.9 Chloride Level 104 Carbon Dioxide Level 28 Anion Gap 6 Blood Urea Nitrogen 17 Creatinine 0.64 Est Glomerular Filtrat Rate mL/min > 60 Glucose Level 119 Calcium Level 8.5 Lab Scanned Report REFERENCE LAB Subjective 24 Hr Interval Summary Musculoskeletal: bone/joint pain Exam/Review of Systems Exam Vitals Vital Signs Date Temp Pulse Resp B/P (MAP) Pulse Ox O2 O2 Flow FiO2 Time Delivery Rate 04/25/19 37.2 15:00 04/25/19 81 16 107/50 91 14:40 (69) 04/25/19 Room Air 00:53 04/24/19 6.0 16:22 Intake and Output 04/24/19 04/24/19 04/25/19 1515:00 23:00 07:00 IntakeIntake Total 2600 ml 100 ml 1490 ml OutputOutput Total 1200 ml 200 ml 1200 ml BalanceBalance 1400 ml -100 ml 290 ml Constitutional: alert, oriented Respiratory: clear to auscultation Cardiovascular: regular rate and rhythm Gastrointestinal: soft Musculoskeletal: No nl extremities to inspection Results Results 24hrs Laboratory Tests Test 04/25/19 05:24 04/25/19 07:13 White Blood Count 10.1 # Red Blood Count 3.13 L Hemoglobin 9.2 L Hematocrit 27.8 L Mean Corpuscular Volume 88.8 Mean Corpuscular Hemoglobin 29.4 Mean Corpuscular Hemoglobin Concent 33.1 Red Cell Distribution Width 13.7 Platelet Count 241 Mean Platelet Volume 8.8 Immature Granulocytes % 0.400 Neutrophils % 78.7 H Lymphocytes % 14.4 L Monocytes % 6.4 Eosinophils % 0.0 Basophils % 0.1 Nucleated Red Blood Cells % 0.0 Immature Granulocytes # 0.040 H Neutrophils # 8.0 H Lymphocytes # 1.5 Monocytes # 0.7 Eosinophils # 0.0 Basophils # 0.0 Nucleated Red Blood Cells # 0.0 Prothrombin Time 13.5 Prothrombin Time Ratio 1.1 INR International Normalized Ratio 1.02 Sodium Level 138 Potassium Level 3.9 Chloride Level 104 Carbon Dioxide Level 28 Anion Gap 6 Blood Urea Nitrogen 17 Creatinine 0.64 Est Glomerular Filtrat Rate mL/min > 60 Glucose Level 119 Calcium Level 8.5 Lab Scanned Report REFERENCE LAB Medications Medication Current Medications Lactated Ringer's 1,000 ml @ 80 mls/hr [id number] IV Last administered on at 04:27; Admin Dose 80 MLS/HR; Start 04/24/19 at 17:00 Oxycodone HCl (Roxicodone) 15 mg Q4H PRN PO .PAIN; Start 04/24/19 at 16:30 Oxycodone HCl (Roxicodone) 10 mg Q4H PRN PO .PAIN Last administered on 04/25/19at 11:34; Admin Dose 10 MG; Start 04/24/19 at 16:30 Oxycodone HCl (Roxicodone) 5 mg Q4H PRN PO .PAIN Last administered on 04/25/19at 00:59; Admin Dose 5 MG; Start 04/24/19 at 16:30 Hydromorphone HCl (Dilaudid) 1 mg Q3H PRN IV .BREAKTHROUGH PAIN; Start 04/24/19 at 16:30 Acetaminophen (Tylenol Tab) 1,000 mg Q8 PO Last administered on 04/25/19at 14:07; Admin Dose 1,000 MG; Start 04/24/19 at 22:00 Ondansetron HCl (Zofran Inj) 4 mg Q4H PRN IV NAUSEA/VOMITING; Start 04/25/19 at 16:30 Gabapentin (Neurontin) 300 mg QHS PO Last administered on 04/24/19at 20:48; Admin Dose 300 MG; Start 04/24/19 at 21:00 Pantoprazole (Protonix Tab) 40 mg DAILY@06 PO Last administered on 04/25/19at 0 6:33; Admin Dose 40 MG; Start 04/25/19 at 06:00 Docusate Sodium (Colace) 200 mg BID PO Last administered on 04/25/19at 09:22; Admin Dose 200 MG; Start 04/25/19 at 09:00; Stop 04/27/19 at 21:01 Simethicone (Mylicon) 80 mg TID PRN PO .GAS; Start 04/24/19 at 16:30 Senna/Docusate Sodium (Senokot-S) 2 tab BID PRN PO .CONSTIPATION; Start 04/24/19 at 16:30 Magnesium Hydroxide (Milk Of Mag) 30 ml HS PRN PO .CONSTIPATION; Start 04/24/19 at 16:30 Bisacodyl (Dulcolax Supp) 10 mg DAILY PRN MO .CONSTIPATION; Start 04/24/19 at 16:30 Sodium Biphosphate/ Sodium Phosphate (Fleet Enema) 133 ml DAILY PRN MO .CONSTIPATION; Start 04/24/19 at 16:30 Diphenhydramine HCl (Benadryl) 25 mg Q4H PRN IV .ITCHING; Start 04/24/19 at 16:30 Naloxone HCl (Narcan) 0.2 mg Q2M PRN IV .RESP RATE; Start 04/24/19 at 16:30 IV Flush (NS 3 ml) 3 ml per protocol IV ; Start 04/24/19 at 16:30 Bethanechol Chloride (Urecholine) 25 mg URINARY CATH D/C PRN PO UNABLE TO VOID; Start 04/24/19 at 16:30 Aspirin (Halfprin) 81 mg BID PO Last administered on 04/25/19at 09:22; Admin Dose 81 MG; Start 04/25/19 at 09:00 NITZA LEVI Apr 25, 2019 15:51
[2019-04-25] MEDS ORDERED: LORAZEPAM 0.5 MG TAB PO PRN (16:00)
[2019-04-25] MEDS ORDERED: ONDANSETRON 4 MG INJ IV PRN (16:30)
[2019-04-25] MEDS: BUPROPION (XL) 150 MG TAB PO SCH (16:33)
[2019-04-25 19:45] VITALS: BP 105/51; PULSE 73; RESP 18
[2019-04-25] MEDS: BUSPIRONE 10 MG TAB PO SCH (21:10)
[2019-04-25] MEDS: GABAPENTIN 300 MG CAP PO SCH (21:10)
[2019-04-26] VITALS (16 sets, daily range): BP systolic 70–106; BP diastolic 33–54; PULSE 62–81; RESP 16–20
[2019-04-26] MEDS: ACETAMINOPHEN 500 MG TAB PO SCH ×3 (05:29→23:10)
[2019-04-26] MEDS: PANTOPRAZOLE (EC) 40 MG TAB PO SCH (05:30)
[2019-04-26] MEDS: BUPROPION (XL) 150 MG TAB PO SCH (08:48)
[2019-04-26] MEDS: BUSPIRONE 10 MG TAB PO SCH ×2 (08:48→20:34)
[2019-04-26] MEDS: ASPIRIN (EC) 81 MG TAB PO SCH ×2 (08:48→20:35)
[2019-04-26] MEDS: DOCUSATE SODIUM 100 MG CAP PO SCH ×2 (08:48→20:35)
[2019-04-26] MEDS: oxyCODONE 5 MG TAB PO PRN (08:49)
[2019-04-26] MEDS ORDERED: SOD CHLORIDE 0.9% 1,000 ML IV ONE ×2 (10:00→12:30)
--- NOTE | 2019-04-26 12:38 | PN ---
Date/Time of Note Date/Time of Note DATE: 04/26/19 TIME: 12:36 Assessment/Plan VTE Prophylaxis Risk score (from Ns)>0 risk: 5 SCD applied (from Ns): Yes Pharmacological prophylaxis: other Lines/Catheters Urinary Cath still in place: No Assessment/Plan Hospital Course 1. Left hip arthritis status post left total hip arthroplasty postop day 2 Pain control PT Aspirin for DVT prophylaxis 2. Symptomatic hypotension Patient with reported dizziness IV fluid bolus H&H stable Prophylaxis: Aspirin DC planning: Not clear for DC today, anticipate DC to home with home health tomorrow Result Diagram: 04/26/1952204/26/19522 Results 24hrs Laboratory Tests Test 04/26/19 05:23 04/26/19 09:47 White Blood Count 7.2 # Red Blood Count 2.91 L Hemoglobin 8.5 L Hematocrit 25.9 L Mean Corpuscular Volume 89.0 Mean Corpuscular Hemoglobin 29.2 Mean Corpuscular Hemoglobin Concent 32.8 Red Cell Distribution Width 14.1 Platelet Count 225 Mean Platelet Volume 8.8 Immature Granulocytes % 0.300 Neutrophils % 63.2 Lymphocytes % 30.2 Monocytes % 5.8 Eosinophils % 0.4 Basophils % 0.1 Nucleated Red Blood Cells % 0.0 Immature Granulocytes # 0.020 Neutrophils # 4.6 Lymphocytes # 2.2 Monocytes # 0.4 Eosinophils # 0.0 Basophils # 0.0 Nucleated Red Blood Cells # 0.0 Prothrombin Time 12.9 Prothrombin Time Ratio 1.0 INR International Normalized Ratio 0.96 Sodium Level 138 Potassium Level 3.5 Chloride Level 104 Carbon Dioxide Level 28 Anion Gap 6 Blood Urea Nitrogen 23 H Creatinine 0.77 Est Glomerular Filtrat Rate mL/min > 60 Glucose Level 102 Calcium Level 8.7 Magnesium Level 2.1 Bedside Glucose 109 Subjective 24 Hr Interval Summary Neurologic: dizziness Exam/Review of Systems Exam Vitals Vital Signs Date Temp Pulse Resp B/P (MAP) Pulse Ox O2 O2 Flow FiO2 Time Delivery Rate 04/26/19 78 16 88/45 (59) 96 2.0 11:50 04/26/19 97.9 07:27 04/25/19 Room Air 00:53 Intake and Output 04/25/19 04/25/19 04/26/19 1515:00 23:00 07:00 IntakeIntake Total 50 ml 500 ml BalanceBalance 50 ml 500 ml Constitutional: alert, oriented Respiratory: clear to auscultation Cardiovascular: regular rate and rhythm Gastrointestinal: soft; No distended Musculoskeletal: nl extremities to inspection Results Results 24hrs Laboratory Tests Test 04/26/19 05:23 04/26/19 09:47 White Blood Count 7.2 # Red Blood Count 2.91 L Hemoglobin 8.5 L Hematocrit 25.9 L Mean Corpuscular Volume 89.0 Mean Corpuscular Hemoglobin 29.2 Mean Corpuscular Hemoglobin Concent 32.8 Red Cell Distribution Width 14.1 Platelet Count 225 Mean Platelet Volume 8.8 Immature Granulocytes % 0.300 Neutrophils % 63.2 Lymphocytes % 30.2 Monocytes % 5.8 Eosinophils % 0.4 Basophils % 0.1 Nucleated Red Blood Cells % 0.0 Immature Granulocytes # 0.020 Neutrophils # 4.6 Lymphocytes # 2.2 Monocytes # 0.4 Eosinophils # 0.0 Basophils # 0.0 Nucleated Red Blood Cells # 0.0 Prothrombin Time 12.9 Prothrombin Time Ratio 1.0 INR International Normalized Ratio 0.96 Sodium Level 138 Potassium Level 3.5 Chloride Level 104 Carbon Dioxide Level 28 Anion Gap 6 Blood Urea Nitrogen 23 H Creatinine 0.77 Est Glomerular Filtrat Rate mL/min > 60 Glucose Level 102 Calcium Level 8.7 Magnesium Level 2.1 Bedside Glucose 109 Medications Medication Current Medications Oxycodone HCl (Roxicodone) 15 mg Q4H PRN PO .PAIN; Start 04/24/19 at 16:30 Oxycodone HCl (Roxicodone) 10 mg Q4H PRN PO .PAIN Last administered on 04/26/19at 08:49; Admin Dose 10 MG; Start 04/24/19 at 16:30 Oxycodone HCl (Roxicodone) 5 mg Q4H PRN PO .PAIN Last administered on 04/25/19at 00:59; Admin Dose 5 MG; Start 04/24/19 at 16:30 Hydromorphone HCl (Dilaudid) 1 mg Q3H PRN IV .BREAKTHROUGH PAIN; Start 04/24/19 at 16:30 Acetaminophen (Tylenol Tab) 1,000 mg Q8 PO Last administered on 04/26/19at 05:29; Admin Dose 1,000 MG; Start 04/24/19 at 22:00 Ondansetron HCl (Zofran Inj) 4 mg Q4H PRN IV NAUSEA/VOMITING; Start 04/25/19 at 16:30 Gabapentin (Neurontin) 300 mg QHS PO Last administered on 04/25/19at 21:10; Admin Dose 300 MG; Start 04/24/19 at 21:00 Pantoprazole (Protonix Tab) 40 mg DAILY@06 PO Last administered on 04/26/19at 05:30; Admin Dose 40 MG; Start 04/25/19 at 06:00 Docusate Sodium (Colace) 200 mg BID PO Last administered on 04/26/19at 08:48; Admin Dose 200 MG; Start 04/25/19 at 09:00; Stop 04/27/19 at 21:01 Simethicone (Mylicon) 80 mg TID PRN PO .GAS; Start 04/24/19 at 16:30 Senna/Docusate Sodium (Senokot-S) 2 tab BID PRN PO .CONSTIPATION; Start 04/24/19 at 16:30 Magnesium Hydroxide (Milk Of Mag) 30 ml HS PRN PO .CONSTIPATION; Start 04/24/19 at 16:30 Bisacodyl (Dulcolax Supp) 10 mg DAILY PRN [place] .CONSTIPATION; Start 04/24/19 at 16:30 Sodium Biphosphate/ Sodium Phosphate (Fleet Enema) 133 ml DAILY PRN SD .CONSTIPATION; Start 04/24/19 at 16:30 Diphenhydramine HCl (Benadryl) 25 mg Q4H PRN IV .ITCHING; Start 04/24/19 at 16:30 Naloxone HCl (Narcan) 0.2 mg Q2M PRN IV .RESP RATE; Start 04/24/19 at 16:30 IV Flush (NS 3 ml) 3 ml per protocol IV ; Start 04/24/19 at 16:30 Bethanechol Chloride (Urecholine) 25 mg URINARY CATH D/C PRN PO UNABLE TO VOID; Start 04/24/19 at 16:30 Aspirin (Halfprin) 81 mg BID PO Last administered on 04/26/19at 08:48; Admin Dose 81 MG; Start 04/25/19 at 09:00 Bupropion HCl (Wellbutrin Xl) 150 mg DAILY PO Last administered on 04/26/19at 08:48; Admin Dose 150 MG; Start 04/25/19 at 16:00 Buspirone HCl (Buspar) 10 mg BID PO Last administered on 04/26/19at 08:48; Admin Dose 10 MG; Start 04/25/19 at 21:00 Lorazepam (Ativan) 0.5 mg HS PRN PO SLEEP; Start 04/25/19 at 16:00 Sodium Chloride 1,000 ml @ 1,000 mls/hr Q1H ONCE IV Last administered on 04/26/19at 12:35; Admin Dose 1,000 MLS/HR; Start 04/26/19 at 12:30; Stop 04/26/19 at 13:29 NITZA LEVI Apr 26, 2019 12:37
[2019-04-26] MEDS: GABAPENTIN 300 MG CAP PO SCH (20:34)
[2019-04-27 02:05] VITALS: BP 107/54; PULSE 84; RESP 18
[2019-04-27] MEDS: ACETAMINOPHEN 500 MG TAB PO SCH ×2 (06:00→13:07)
[2019-04-27] MEDS: PANTOPRAZOLE (EC) 40 MG TAB PO SCH (06:58)
[2019-04-27 07:43] VITALS: BP 111/55; PULSE 80; RESP 18
--- NOTE | 2019-04-27 08:02 | PN ---
Date/Time of Note Date/Time of Note DATE: 04/27/19 TIME: 08:01 Assessment/Plan Lines/Catheters IV Catheter Type (from Nrsg): Saline Lock Ramirez in Place (from Nrsg): No Assessment/Plan Chief Complaint/Hosp Course POD#3 s/p primary left LINA. Patient did very well with therapy. Pain is well controlled. Tolerating diet well. -Post op H&H stable -PT/OT. Posterior Hip Precautions -Joints pain control protocol -DVT prophylaxis: SCD's, ASA 81 mg twice daily x6 weeks -Weight bearing status: as tolerated -Diet: ADAT -Ramirez: Discontinued -Discharge planning consult Planned Discharge Date: Today Discharge to home with home health Subjective 24 Hr Interval Summary Patient doing well No acute events overnight Pain is well controlled Exam/Review of Systems Vital Signs Vitals Vital Signs Date Temp Pulse Resp B/P (MAP) Pulse Ox O2 O2 Flow FiO2 Time Delivery Rate 04/27/19 98.3 80 18 111/55 99 Room Air 07:43 (73) 04/26/19 2.0 13:45 Intake and Output 04/26/19 04/26/19 04/27/19 1414:59 22:59 06:59 IntakeIntake Total 2000 ml 500 ml OutputOutput Total 300 ml BalanceBalance 2000 ml 200 ml Exam Free Text/Dictation Left lower extremity: Dressing: clean, dry, and intact, no erythema Sensation intact to light touch in a sural, saphenous, deep peroneal, superficial peroneal, medial and lateral plantar nerve distribution. Motor is intact, patient able to dorsiflex and plantarflex ankle and extend and flex great toe. Dorsalis Pedis pulse +2, Brisk capillary refill. Compartments are soft. Calves non-tender to palpation bilaterally. Results Result Diagram: 04/27/19 0529 04/27/19 0529 GABRIEL ESPINAL MD Apr 27, 2019 08:02
--- NOTE | 2019-04-27 08:03 | DS ---
Date/Time of Note Date/Time of Note DATE: 04/27/19 TIME: 08:02 Discharge Summary Admission/Discharge Info Admit Date/Time Apr 24, 2019 at 08:13 Discharge Date/Time Patient Condition: Good Hospital Course POD#3 s/p primary left LINA. Patient did very well with therapy. Pain is well controlled. Tolerating diet well. Hospital course uneventful. -Post op H&H stable -PT/OT. Posterior Hip Precautions -Joints pain control protocol -DVT prophylaxis: SCD's, ASA 81 mg twice daily x6 weeks -Weight bearing status: as tolerated -Diet: ADAT -Ramirez: Discontinued -Discharge planning consult Planned Discharge Date: Today Discharge to home with home health Home Meds Reported Medications Lorazepam* (Lorazepam*) 0.5 Mg Tablet, 0.5 MG PO HS PRN for SLEEP, TAB 04/24/19 Meloxicam* (Mobic*) 15 Mg Tablet, 15 MG PO DAILY, #30 TAB 04/24/19 Bupropion Hcl* (Bupropion XL*) 150 Mg Tab.er.24h, 150 MG PO DAILY, TAB.SA 04/24/19 Buspirone Hcl* (Buspirone Hcl*) 10 Mg Tab, 10 MG PO BID, TAB 04/24/19 Aspirin (Low Dose Aspirin) 81 Mg Tablet.dr, 81 MG PO DAILY, #30 TAB 04/24/19 Follow-up Plan Follow-up in 2 weeks as scheduled Primary Care Provider Not On Staff Doctor Time spent on discharge: < 30 minutes Pending Labs Laboratory Tests Test 04/26/19 09:47 04/27/19 05:29 Bedside Glucose 109 mg/dL (70-220) White Blood Count 6.1 10^3/ul (4.8-10.8) Red Blood Count 2.80 10^6/ul (4.20-5.40) Hemoglobin 8.1 g/dl (12.0-16.0) Hematocrit 25.5 % (37.0-47.0) Mean Corpuscular Volume 91.1 fl (82.0-101.0) Mean Corpuscular Hemoglobin 28.9 pg (29.0-33.0) Mean Corpuscular 31.8 g/dl (32.0-37.0) Hemoglobin Concent Red Cell Distribution Width 14.1 % (11.5-14.5) Platelet Count 224 10^3/UL (140-415) Mean Platelet Volume 8.6 fl (7.4-10.4) Immature Granulocytes % 0.200 % (0.001-0.429) Neutrophils % 48.4 % (39.0-77.0) Lymphocytes % 41.3 % (15.0-51.0) Monocytes % 7.2 % (0.0-11.0) Eosinophils % 2.6 % (0.0-7.0) Basophils % 0.3 % (0.0-2.0) Nucleated Red Blood Cells % 0.0 /100WBC (0.0-0.0) Immature Granulocytes # 0.010 10^3/ul (0.0-0.031) Neutrophils # 3.0 10^3/ul (1.6-7.5) Lymphocytes # 2.5 10^3/ul (0.8-2.9) Monocytes # 0.4 10^3/ul (0.3-0.9) Eosinophils # 0.2 10^3/ul (0.0-0.5) Basophils # 0.0 10^3/ul (0.0-0.1) Nucleated Red Blood Cells # 0.0 10^3/ul (0.0-0.0) Prothrombin Time 12.8 Sec (11.9-14.9) Prothrombin Time Ratio 1.0 INR International 0.95 Normalized Ratio Sodium Level 140 mmol/L (135-144) Potassium Level 3.7 mmol/L (3.5-5.1) Chloride Level 108 mmol/L (97-110) Carbon Dioxide Level 27 mmol/L (21-31) Anion Gap 5 (5-13) Blood Urea Nitrogen 13 mg/dl (7-20) Creatinine 0.61 mg/dl (0.44-1.00) Est Glomerular Filtrat > 60 mL/min (>60) Rate mL/min Glucose Level 95 mg/dl (70-220) Calcium Level 8.4 mg/dl (8.4-10.2) GABRIEL ESPINAL MD Apr 27, 2019 08:03
[2019-04-27] MEDS: ASPIRIN (EC) 81 MG TAB PO SCH (08:45)
[2019-04-27] MEDS: BUPROPION (XL) 150 MG TAB PO SCH (08:45)
[2019-04-27] MEDS: DOCUSATE SODIUM 100 MG CAP PO SCH (08:45)
[2019-04-27] MEDS: BUSPIRONE 10 MG TAB PO SCH (08:45)
[2019-04-27 10:19] VITALS: BP 97/54; RESP 12
[2019-04-27] MEDS: oxyCODONE 5 MG TAB PO PRN (10:36)
[2019-04-27] MEDS ORDERED: SOD CHLORIDE 0.9% 1,000 ML IV ONE (11:00)
[2019-04-27 12:00] VITALS: BP 123/60
--- NOTE | 2019-04-27 18:29 | PN ---
Date/Time of Note Date/Time of Note DATE: 04/27/19 TIME: 18:28 Assessment/Plan VTE Prophylaxis Risk score (from Nsg)>0 risk: 5 SCD applied (from Nsg): Yes Pharmacological prophylaxis: other Lines/Catheters IV Catheter Type (from Nrsg): Peripheral IV Urinary Cath still in place: No Assessment/Plan Hospital Course 1. Left hip arthritis status post left total hip arthroplasty postop day 3 Pain control PT Aspirin for DVT prophylaxis DC home today per Ortho 2. Symptomatic hypotension secondary to pain meds BP now stable with no further dizziness Status post fluids H&H stable Prophylaxis: Aspirin DC planning: Discharge by Ortho today Result Diagram: 04/27/19 0529 04/27/19 0529 Results 24hrs Laboratory Tests Test 04/27/19 05:29 White Blood Count 6.1 Red Blood Count 2.80 L Hemoglobin 8.1 L Hematocrit 25.5 L Mean Corpuscular Volume 91.1 Mean Corpuscular Hemoglobin 28.9 L Mean Corpuscular Hemoglobin Concent 31.8 L Red Cell Distribution Width 14.1 Platelet Count 224 Mean Platelet Volume 8.6 Immature Granulocytes % 0.200 Neutrophils % 48.4 Lymphocytes % 41.3 Monocytes % 7.2 Eosinophils % 2.6 Basophils % 0.3 Nucleated Red Blood Cells % 0.0 Immature Granulocytes # 0.010 Neutrophils # 3.0 Lymphocytes # 2.5 Monocytes # 0.4 Eosinophils # 0.2 Basophils # 0.0 Nucleated Red Blood Cells # 0.0 Prothrombin Time 12.8 Prothrombin Time Ratio 1.0 INR International Normalized Ratio 0.95 Sodium Level 140 Potassium Level 3.7 Chloride Level 108 Carbon Dioxide Level 27 Anion Gap 5 Blood Urea Nitrogen 13 # Creatinine 0.61 Est Glomerular Filtrat Rate mL/min > 60 Glucose Level 95 Calcium Level 8.4 Subjective 24 Hr Interval Summary Constitutional: no complaints Exam/Review of Systems Exam Vitals Vital Signs Date Temp Pulse Resp B/P (MAP) Pulse Ox O2 O2 Flow FiO2 Time Delivery Rate 04/27/19 123/60 12:00 (81) 04/27/19 98.0 12 98 Room Air 10:19 04/27/19 80 07:43 04/26/19 2.0 13:45 Intake and Output 04/26/19 04/26/19 04/27/19 1515:00 23:00 07:00 IntakeIntake Total 2000 ml 500 ml OutputOutput Total 300 ml BalanceBalance 2000 ml 200 ml Constitutional: alert, oriented Respiratory: clear to auscultation Cardiovascular: regular rate and rhythm Gastrointestinal: soft; No distended Musculoskeletal: nl extremities to inspection Results Results 24hrs Laboratory Tests Test 04/27/19 05:29 White Blood Count 6.1 Red Blood Count 2.80 L Hemoglobin 8.1 L Hematocrit 25.5 L Mean Corpuscular Volume 91.1 Mean Corpuscular Hemoglobin 28.9 L Mean Corpuscular Hemoglobin Concent 31.8 L Red Cell Distribution Width 14.1 Platelet Count 224 Mean Platelet Volume 8.6 Immature Granulocytes % 0.200 Neutrophils % 48.4 Lymphocytes % 41.3 Monocytes % 7.2 Eosinophils % 2.6 Basophils % 0.3 Nucleated Red Blood Cells % 0.0 Immature Granulocytes # 0.010 Neutrophils # 3.0 Lymphocytes # 2.5 Monocytes # 0.4 Eosinophils # 0.2 Basophils # 0.0 Nucleated Red Blood Cells # 0.0 Prothrombin Time 12.8 Prothrombin Time Ratio 1.0 INR International Normalized Ratio 0.95 Sodium Level 140 Potassium Level 3.7 Chloride Level 108 Carbon Dioxide Level 27 Anion Gap 5 Blood Urea Nitrogen 13 # Creatinine 0.61 Est Glomerular Filtrat Rate mL/min > 60 Glucose Level 95 Calcium Level 8.4 NITZA LEVI Apr 27, 2019 18:29
== END 2019-04-27 16:15 | disposition home health service (06) | DRG 470 ==
LOC: REC 08:13 → MS1 18:24
PROVIDERS: ADMIT Orthopaedic Surgery Adult Reconstructive Orthopaedic Surgery; ATTEND Orthopaedic Surgery Adult Reconstructive Orthopaedic Surgery
PROC: 0SRB04Z Replacement of Left Hip Joint with Ceramic on Polyethylene Synthetic Substitute, Open Approach (ICD-10-PCS; principal; 2019-04-24 12:00)
DX: M16.12 Unilateral primary osteoarthritis, left hip (principal); M24.7 Protrusio acetabuli; F32.9 Major depressive disorder, single episode, unspecified; I95.2 Hypotension due to drugs
CPT/HCPCS: 72170; 73500; 73530; 80048; 82962; 83735; 85025; 85610; 85730; 86850; 86900; 86901; 86920; 87081; 87086; 88304; 88311; 97110; 97116; 97161; 97165; 97530; 97535; C1713; C1776; J0131; J0171; J0690; J0735; J1100; J1885; J2405; J2710; J2765; J2795; J7030; J7120